=== PATIENT | female | born 1965 | race Caucasian/White ===

== ENCOUNTER 2017-03-06 13:54 | Emergency (ER) | payer SELFPAY ==
[~2017-03-06] VITALS: Ht 165.1 cm; Wt 65.8 kg
[~2017-03-06 13:54] MED LIST: ALBU90I INH; ALPR.5 PO; AZIT250 PO; CITA20 PO; CYCL10 PO; DIPATR PO; FAMO20 PO; Flomax0.4 MG PO; GABA100 PO; HYDACE10B PO; HYDACE5; HYDACE5325 PO; IBUP600; IBUP600 PO; LOPE2C PO; Norco 10-325 T1 EACH PO; OMEP20ER PO; OXYC5 PO; PANT20 PO; PANT40 PO; PRED20 PO; PREG25 PO; PROACE100; PROM25 PO; RXHYD5325 PO; TEMA30 PO; TRAZ50 PO; VITAMIN D50000 UNIT PO
[2017-03-06 14:39] LABS: BASOPHILS ABSOLUTE AUTO 0.02 K/mm3 (0.00-0.23); BASOPHILS PERCENT AUTO 0 % (0-2); EOSINOPHILS ABSOLUTE AUTO 0.05 K/mm3 (0.00-0.68); EOSINOPHILS PERCENT AUTO 1 % (0-6); Hematocrit 42.6 % (33.0-51.0); Hemoglobin 14.6 g/dL (11.5-16.0); IMMATURE GRAN ABSOLUTE AUTO 0.02 K/mm3 (0.00-0.10); IMMATURE GRAN PERCENT AUTO 0 % (0-1); LYMPHOCYTES ABSOLUTE AUTO 1.99 K/mm3 (0.84-5.20); LYMPHOCYTES PERCENT AUTO 28 % (21-46); MONOCYTES ABSOLUTE AUTO 0.66 K/mm3 (0.16-1.47); MONOCYTES PERCENT AUTO 9 % (4-13); Mean Corpuscular HGB Conc 34.3 g/dL (31.5-36.5); Mean Corpuscular Volume 96 fL (80-100); Mean Platelet Volume 10.6 fL (9.1-12.4); NEUTROPHILS ABSOLUTE AUTO 4.45 K/mm3 (1.96-9.15); NEUTROPHILS PERCENT AUTO 62 % (41-73); Platelet Count 206 K/mm3 (150-400); RDW Standard Deviation 49.3 fL (35.1-46.3); Red Blood Cell Count 4.43 M/mm3 (3.80-5.20); White Blood Cell Count 7.19 K/mm3 (4.00-11.30)
[2017-03-06 15:02] LABS: Troponin I <0.015 ng/mL (0.000-0.040)
[2017-03-06 15:06] LABS: Alanine Aminotransfer (ALT/SGP 50 U/L (12-78); Albumin, Blood 4.1 g/dL (3.4-5.0); Albumin/Globulin Ratio 1.1 (0.8-1.8); Alk Phos 84 U/L (50-136); Anion Gap 9 mmol/L (6-16); Aspartate Aminotrans (AST/SGOT 45 U/L (12-37); Bilirubin, Total 0.3 mg/dL (0.1-1.0); Blood Urea Nitrogen 15 mg/dL (8-24); Bun/Creatinine Ratio 27.6 (12.0-20.0); CO2, Blood 23 mmol/L (21-32); Calcium, Blood 9.2 mg/dL (8.5-10.1); Chloride, Blood 107 mmol/L (98-108); Creatinine, Blood 0.54 mg/dL (0.40-1.00); Globulin, Blood 3.8 g/dL (2.2-4.0); Glomerular Filtration Rate >60 (60-); Glucose, Blood 112 mg/dL (70-99); Potassium, Blood 3.9 mmol/L (3.5-5.5); Sodium, Blood 139 mmol/L (136-145); Total Protein, Blood 7.9 g/dL (6.4-8.2)
[2017-03-06 17:18] LABS: Magnesium, Blood 1.7 mg/dL (1.6-2.4)
[2017-03-06 17:38] LABS: Source, Urine Clean Catch
[2017-03-06 18:02] LABS: Appearance, Urine Clear (Clear); Bilirubin, Urine Neg (Neg); Blood, Urine Neg (Neg); Color, Urine Yellow (P-Yellow); Glucose Qualitative, Urine Neg (Neg); Ketones, Urine Neg (Neg); Leukocyte Esterase, Urine Neg (Neg); Nitrite, Urine Neg (Neg); Protein, Urine 2+ (Neg); Urobilinogen, Urine NORM (Normal)
[2017-03-06 18:29] LABS: Bacteria Rare /hpf; Red Blood Cells, Urine 0-2 /hpf (0-2); White Blood Cells, Urine 0-2 /hpf (0-5)
[2017-03-06 18:30] LABS: Squamous Epithelial Cells Few /hpf (Few)
[2017-03-06] MEDS ORDERED: Toprol Xl25 MG PO (19:20)
== END 2017-03-06 19:15 | disposition home or self-care (01) ==
LOC: ER 13:54
PROVIDERS: Emergency Medicine
DX: R00.2 Palpitations (principal); R07.89 Other chest pain; F17.200 Nicotine dependence, unspecified, uncomplicated; Z85.3 Personal history of malignant neoplasm of breast; Z90.712 Acquired absence of cervix with remaining uterus
CPT/HCPCS: 36415; 71046; 71260; 80053; 81001; 83735; 83880; 84443; 84484; 85025; 93005; 93010; 96374; 96375; 99284; J2060; J2405; J7030; Q9967

== ENCOUNTER 2018-07-01 09:05 | Emergency (ER) | payer SELFPAY ==
[~2018-07-01] VITALS: Ht 165.1 cm; Wt 65.3 kg
[~2018-07-01 09:05] MED LIST changes: +Toprol Xl25 MG PO
[2018-07-01] MEDS ORDERED: VITAMIN D5000 UNIT PO (09:25)
[2018-07-01] MEDS ORDERED: PROBIOTIC250 MG PO (09:25)
[2018-07-01 09:54] LABS: BASOPHILS ABSOLUTE AUTO 0.04 K/mm3 (0.00-0.23); BASOPHILS PERCENT AUTO 1 % (0-2); EOSINOPHILS ABSOLUTE AUTO 0.01 K/mm3 (0.00-0.68); EOSINOPHILS PERCENT AUTO 0 % (0-6); Hematocrit 44.2 % (33.0-51.0); Hemoglobin 14.9 g/dL (11.5-16.0); IMMATURE GRAN ABSOLUTE AUTO 0.03 K/mm3 (0.00-0.10); IMMATURE GRAN PERCENT AUTO 0 % (0-1); LYMPHOCYTES ABSOLUTE AUTO 0.86 K/mm3 (0.84-5.20); LYMPHOCYTES PERCENT AUTO 10 % (21-46); MONOCYTES ABSOLUTE AUTO 0.59 K/mm3 (0.16-1.47); MONOCYTES PERCENT AUTO 7 % (4-13); Mean Corpuscular HGB 34.9 pg (26.0-34.0); Mean Corpuscular HGB Conc 33.7 g/dL (31.5-36.5); Mean Corpuscular Volume 104 fL (80-100); Mean Platelet Volume 10.6 fL (9.1-12.4); NEUTROPHILS ABSOLUTE AUTO 7.33 K/mm3 (1.96-9.15); NEUTROPHILS PERCENT AUTO 83 % (41-73); Platelet Count 210 K/mm3 (150-400); RDW Coefficient Variation 14.2 % (11.7-14.2); RDW Standard Deviation 54.2 fL (35.1-46.3); Red Blood Cell Count 4.27 M/mm3 (3.80-5.20); White Blood Cell Count 8.86 K/mm3 (4.00-11.30)
[2018-07-01 10:35] LABS: Alanine Aminotransfer (ALT/SGP 115 U/L (12-78); Albumin, Blood 4.2 g/dL (3.4-5.0); Albumin/Globulin Ratio 1.1 (0.8-1.8); Alk Phos 117 U/L (50-136); Anion Gap 9 mmol/L (6-16); Aspartate Aminotrans (AST/SGOT 200 U/L (12-37); Bilirubin, Total 0.6 mg/dL (0.1-1.0); Blood Urea Nitrogen 8 mg/dL (8-24); Bun/Creatinine Ratio 16.2 (12.0-20.0); CO2, Blood 22 mmol/L (21-32); Calcium, Blood 8.9 mg/dL (8.5-10.1); Chloride, Blood 107 mmol/L (98-108); Creatinine, Blood 0.49 mg/dL (0.40-1.00); Globulin, Blood 3.7 g/dL (2.2-4.0); Glomerular Filtration Rate >60 (60-); Glucose, Blood 108 mg/dL (70-99); Potassium, Blood 4.7 mmol/L (3.5-5.5); Sodium, Blood 138 mmol/L (136-145); Total Protein, Blood 7.9 g/dL (6.4-8.2); Troponin I <0.015 ng/mL (0.000-0.040)
[2018-07-01] MEDS ORDERED: Vistaril25 MG PO (12:28)
== END 2018-07-01 12:56 | disposition home or self-care (01) ==
LOC: ER 09:05
PROVIDERS: Emergency Medicine
DX: R00.2 Palpitations (principal); R00.0 Tachycardia, unspecified; F41.9 Anxiety disorder, unspecified; F32.9 Major depressive disorder, single episode, unspecified; F17.210 Nicotine dependence, cigarettes, uncomplicated; Z85.3 Personal history of malignant neoplasm of breast
CPT/HCPCS: 36415; 71260; 80053; 84484; 85025; 93005; 93010; 96374-59; 99284-25; J2405; Q9967

== ENCOUNTER 2020-02-13 09:34 | Inpatient (IN) | payer SELFPAY ==
[~2020-02-13] VITALS: Ht 165.1 cm; Wt 67.2 kg
[~2020-02-13 09:34] MED LIST changes: +PROBIOTIC250 MG PO; +VITAMIN D5000 UNIT PO; +Vistaril25 MG PO
[2020-02-13] MEDS ORDERED: MOTRIN IB200 MG PO (09:48)
[2020-02-13] MEDS ORDERED: OMEP20ER PO (09:48)
[2020-02-13 10:00] LABS: BASOPHILS ABSOLUTE AUTO 0.04 K/mm3 (0.00-0.23); BASOPHILS PERCENT AUTO 0 % (0-2); EOSINOPHILS PERCENT AUTO 0 % (0-6); Hematocrit 43.1 % (33.0-51.0); Hemoglobin 14.8 g/dL (11.5-16.0); IMMATURE GRAN ABSOLUTE AUTO 0.05 K/mm3 (0.00-0.10); IMMATURE GRAN PERCENT AUTO 0 % (0-1); LYMPHOCYTES ABSOLUTE AUTO 1.39 K/mm3 (0.84-5.20); LYMPHOCYTES PERCENT AUTO 8 % (21-46); MONOCYTES ABSOLUTE AUTO 0.97 K/mm3 (0.16-1.47); MONOCYTES PERCENT AUTO 6 % (4-13); Mean Corpuscular HGB 31.2 pg (26.0-34.0); Mean Corpuscular HGB Conc 34.3 g/dL (31.5-36.5); Mean Corpuscular Volume 91 fL (80-100); Mean Platelet Volume 10.6 fL (9.1-12.4); NEUTROPHILS ABSOLUTE AUTO 14.89 K/mm3 (1.96-9.15); NEUTROPHILS PERCENT AUTO 86 % (41-73); Platelet Count 289 K/mm3 (150-400); RDW Coefficient Variation 14.8 % (11.7-14.2); RDW Standard Deviation 49.6 fL (35.1-46.3); Red Blood Cell Count 4.75 M/mm3 (3.80-5.20); White Blood Cell Count 17.34 K/mm3 (4.00-11.30)
[2020-02-13 10:27] LABS: Magnesium, Blood 1.6 mg/dL (1.6-2.4)
[2020-02-13 10:35] LABS: Alanine Aminotransfer (ALT/SGP 32 U/L (12-78); Albumin/Globulin Ratio 0.8 (0.8-1.8); Alk Phos 97 U/L (50-136); Anion Gap 12 mmol/L (6-16); Aspartate Aminotrans (AST/SGOT 54 U/L (12-37); Bilirubin, Total 0.8 mg/dL (0.1-1.0); Blood Urea Nitrogen 4 mg/dL (8-24); CO2, Blood 31 mmol/L (21-32); Chloride, Blood 103 mmol/L (98-108); Creatinine, Blood 0.45 mg/dL (0.40-1.00); Glomerular Filtration Rate >60 (60-); Glucose, Blood 120 mg/dL (70-99); Potassium, Blood 1.6 mmol/L (3.5-5.5); Sodium, Blood 146 mmol/L (136-145)
[2020-02-13 10:41] LABS: Source, Urine Clean Catch
[2020-02-13 10:54] LABS: Bilirubin, Urine Neg (Neg); Blood, Urine 2+ (Neg); Glucose Qualitative, Urine Neg (Neg); Ketones, Urine Neg (Neg); Leukocyte Esterase, Urine Neg (Neg); Nitrite, Urine Neg (Neg); Protein, Urine Neg (Neg); Urobilinogen, Urine NORM (Normal)
[2020-02-13 11:07] LABS: Appearance, Urine Clear (Clear); Color, Urine Yellow (P-Yellow)
[2020-02-13 11:09] LABS: Bacteria Not Seen /hpf; Squamous Epithelial Cells Mod /hpf (Few); White Blood Cells, Urine Not Seen /hpf (0-5)
[2020-02-13 11:14] LABS: U Amphetamine Screen Not Detected; U Barbituate Screen Not Detected; U Benzodiazapine Screen Not Detected; U Buprenorphine Screen Not Detected; U Cannabinoids Screen DETECTED; U Cocaine Screen Not Detected; U Methadone Screen Not Detected; U Methamphetamine Screen Not Detected; U Opiates Screen Not Detected; U Oxycodone Screen Not Detected; U Phencyclidine Screen Not Detected; U Propoxyphene Screen Not Detected
[2020-02-13 14:32] LABS: Anion Gap 14 mmol/L (6-16); Blood Urea Nitrogen 4 mg/dL (8-24); Bun/Creatinine Ratio 8.3 (12.0-20.0); CO2, Blood 29 mmol/L (21-32); Calcium, Blood 9.3 mg/dL (8.5-10.1); Chloride, Blood 104 mmol/L (98-108); Creatinine, Blood 0.48 mg/dL (0.40-1.00); Glomerular Filtration Rate >60 (60-); Glucose, Blood 117 mg/dL (70-99); Phosphorus, Blood 1.2 mg/dL (2.5-4.9); Potassium, Blood 1.7 mmol/L (3.5-5.5); Sodium, Blood 147 mmol/L (136-145)
[2020-02-13] MEDS ORDERED: IBUP200 PO (15:17)
[2020-02-13 22:21] LABS: Albumin, Blood 2.5 g/dL (3.4-5.0); Anion Gap 8 mmol/L (6-16); Blood Urea Nitrogen 3 mg/dL (8-24); Bun/Creatinine Ratio 6.1 (12.0-20.0); CO2, Blood 35 mmol/L (21-32); Calcium, Blood 8.3 mg/dL (8.5-10.1); Chloride, Blood 105 mmol/L (98-108); Glomerular Filtration Rate >60 (60-); Glucose, Blood 123 mg/dL (70-99); Phosphorus, Blood 4.3 mg/dL (2.5-4.9); Potassium, Blood 1.7 mmol/L (3.5-5.5); Sodium, Blood 148 mmol/L (136-145)
[2020-02-14 04:33] LABS: Anion Gap 8 mmol/L (6-16); Blood Urea Nitrogen 3 mg/dL (8-24); Bun/Creatinine Ratio 6.3 (12.0-20.0); CO2, Blood 34 mmol/L (21-32); Chloride, Blood 107 mmol/L (98-108); Creatinine, Blood 0.48 mg/dL (0.40-1.00); Glomerular Filtration Rate >60 (60-); Glucose, Blood 108 mg/dL (70-99); Potassium, Blood 1.8 mmol/L (3.5-5.5); Sodium, Blood 149 mmol/L (136-145)
[2020-02-14 18:24] LABS: Magnesium, Blood 1.8 mg/dL (1.6-2.4)
[2020-02-14 18:29] LABS: Albumin, Blood 2.6 g/dL (3.4-5.0); Anion Gap 11 mmol/L (6-16); Blood Urea Nitrogen 2 mg/dL (8-24); CO2, Blood 29 mmol/L (21-32); Calcium, Blood 8.1 mg/dL (8.5-10.1); Chloride, Blood 104 mmol/L (98-108); Creatinine, Blood 0.51 mg/dL (0.40-1.00); Glomerular Filtration Rate >60 (60-); Glucose, Blood 81 mg/dL (70-99); Phosphorus, Blood 3.2 mg/dL (2.5-4.9); Potassium, Blood 2.1 mmol/L (3.5-5.5); Sodium, Blood 144 mmol/L (136-145)
[2020-02-15 05:29] LABS: Hematocrit 36.1 % (33.0-51.0); Hemoglobin 12.2 g/dL (11.5-16.0); Mean Corpuscular HGB Conc 33.8 g/dL (31.5-36.5); Mean Corpuscular Volume 92 fL (80-100); Mean Platelet Volume 10.8 fL (9.1-12.4); Platelet Count 220 K/mm3 (150-400); RDW Coefficient Variation 15.1 % (11.7-14.2); RDW Standard Deviation 51.6 fL (35.1-46.3); Red Blood Cell Count 3.93 M/mm3 (3.80-5.20)
[2020-02-15 05:42] LABS: Albumin, Blood 2.5 g/dL (3.4-5.0); Anion Gap 4 mmol/L (6-16); Blood Urea Nitrogen 1 mg/dL (8-24); Bun/Creatinine Ratio 2.1 (12.0-20.0); CO2, Blood 34 mmol/L (21-32); Calcium, Blood 7.9 mg/dL (8.5-10.1); Chloride, Blood 109 mmol/L (98-108); Creatinine, Blood 0.49 mg/dL (0.40-1.00); Glomerular Filtration Rate >60 (60-); Glucose, Blood 92 mg/dL (70-99); Phosphorus, Blood 3.7 mg/dL (2.5-4.9); Potassium, Blood 2.7 mmol/L (3.5-5.5); Sodium, Blood 147 mmol/L (136-145)
[2020-02-16] MEDS ORDERED: POTCHL20ER PO (10:54)
== END 2020-02-16 12:55 | disposition home or self-care (01) | DRG 641 ==
LOC: ER 09:34 → PCU 12:55 → MEDS 02-16 00:18
PROVIDERS: Emergency Medicine; Internal Medicine; ADMIT Internal Medicine
DX: E87.6 Hypokalemia (principal); F10.20 Alcohol dependence, uncomplicated; K21.9 Gastro-esophageal reflux disease without esophagitis; M62.81 Muscle weakness (generalized); I49.3 Ventricular premature depolarization; Z20.828 Contact with and (suspected) exposure to other viral communicable diseases; F32.9 Major depressive disorder, single episode, unspecified; F41.9 Anxiety disorder, unspecified; Z85.3 Personal history of malignant neoplasm of breast; Z85.41 Personal history of malignant neoplasm of cervix uteri; F17.210 Nicotine dependence, cigarettes, uncomplicated
CPT/HCPCS: 36415; 70450; 80048; 80053; 80069; 81001; 82330; 82550; 82607; 82746; 83735; 84100; 84132; 84443; 85025; 85027; 87493; 93005; 93010; 96365; 96366; 96367; 96368; 96375; 97110; 97162; 97166; 97168; 97530; 97535; 99285-25; A9270; A9270-GY; C1751; C9113; G0480; J0610; J1650; J2405; J3411; J3475; J3480; J7030; J7060; P9612

== ENCOUNTER 2020-12-26 17:27 | Inpatient (IN) | payer SELFPAY ==
[~2020-12-26] VITALS: Ht 165.1 cm; Wt 62.0 kg
[~2020-12-26 17:27] MED LIST changes: +IBUP200 PO; +MOTRIN IB200 MG PO; +POTCHL20ER PO
[2020-12-26 18:00] LABS: Calcium, Ionized (POC) 0.95 mmol/L (1.10-1.46); Chloride (POC) 98 mmol/L (98-108); Creatinine (POC) 0.6 mg/dL (0.6-1.0); Glucose (ISTAT POC) 95 mg/dL (70-99); Hemoglobin (POC) 11.9 g/dL (12.0-16.0); Potassium (POC) 2.1 mmol/L (3.5-5.5); Sodium (POC) 140 mmol/L (135-148); Total CO2 (POC) 27 mmol/L (21-32)
[2020-12-26 18:00] LABS: BASOPHILS ABSOLUTE AUTO 0.03 K/mm3 (0.00-0.23); BASOPHILS PERCENT AUTO 0 % (0-2); EOSINOPHILS ABSOLUTE AUTO 0.09 K/mm3 (0.00-0.68); EOSINOPHILS PERCENT AUTO 1 % (0-6); Hematocrit 34.3 % (33.0-51.0); Hemoglobin 12.3 g/dL (11.5-16.0); IMMATURE GRAN ABSOLUTE AUTO 0.01 K/mm3 (0.00-0.10); IMMATURE GRAN PERCENT AUTO 0 % (0-1); LYMPHOCYTES ABSOLUTE AUTO 2.32 K/mm3 (0.84-5.20); LYMPHOCYTES PERCENT AUTO 33 % (21-46); MONOCYTES PERCENT AUTO 7 % (4-13); Mean Corpuscular HGB 37.5 pg (26.0-34.0); Mean Corpuscular HGB Conc 35.9 g/dL (31.5-36.5); Mean Corpuscular Volume 105 fL (80-100); Mean Platelet Volume 9.7 fL (9.1-12.4); NEUTROPHILS ABSOLUTE AUTO 4.06 K/mm3 (1.96-9.15); NEUTROPHILS PERCENT AUTO 58 % (41-73); Platelet Count 284 K/mm3 (150-400); RDW Coefficient Variation 15.2 % (11.7-14.2); RDW Standard Deviation 58.5 fL (35.1-46.3); Red Blood Cell Count 3.28 M/mm3 (3.80-5.20); White Blood Cell Count 7.01 K/mm3 (4.00-11.30)
[2020-12-26 18:53] LABS: Alanine Aminotransfer (ALT/SGP 19 U/L (12-78); Albumin, Blood 2.8 g/dL (3.4-5.0); Albumin/Globulin Ratio 0.8 (0.8-1.8); Alk Phos 141 U/L (50-136); Anion Gap 12 mmol/L (6-16); Aspartate Aminotrans (AST/SGOT 27 U/L (12-37); Bilirubin, Total 0.3 mg/dL (0.1-1.0); Blood Urea Nitrogen 4 mg/dL (8-24); Bun/Creatinine Ratio 6.6 (12.0-20.0); CO2, Blood 28 mmol/L (21-32); Calcium, Blood 8.5 mg/dL (8.5-10.1); Chloride, Blood 101 mmol/L (98-108); Creatinine, Blood 0.61 mg/dL (0.40-1.00); Globulin, Blood 3.6 g/dL (2.2-4.0); Glomerular Filtration Rate >60 (60-); Glucose, Blood 93 mg/dL (70-99); Potassium, Blood 2.2 mmol/L (3.5-5.5); Sodium, Blood 141 mmol/L (136-145); Total Protein, Blood 6.4 g/dL (6.4-8.2)
[2020-12-26] MEDS ORDERED: MOTRIN IB200 MG PO (21:00)
[2020-12-26] MEDS ORDERED: MELATONIN5 M1 PO (21:01)
--- NOTE | 2020-12-26 22:35 | NUR ---
PT NEW ADMIT, ARRIVED TO UNIT AT 2029. A/O X4. PT STATES SHE FEELS PRESSURE IN HER CHEST. PT ADMITTED WITH CRITICAL LOW POTASSIUM. 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 IV POTASSIUM CHLORIDE CURRENTLY INFUSING PER EMAR. CALL LIGHT WITHIN REACH, WILL CONTINUE TO MONITOR.
--- NOTE | 2020-12-27 06:27 | NUR ---
ELECTRONIC SYSTEMS SECURITY ASSESSMENT SUMMARY PT A/O X4, PLEASANT AND COOPERATIVE. VITALS STABLE. DENIES PAIN, SOB. PT STATES SHE FEELS LESS PRESSURE IN HER CHEST COMPARED TO WHEN SHE GOT ADMITTED. SR IN THE 80'S TO THE 90'S. VSS. CALL LIGHT WITHIN REACH, WILL CONTINUE TO MONITOR.
[2020-12-27 08:38] LABS: BASOPHILS ABSOLUTE AUTO 0.02 K/mm3 (0.00-0.23); BASOPHILS PERCENT AUTO 0 % (0-2); EOSINOPHILS ABSOLUTE AUTO 0.06 K/mm3 (0.00-0.68); EOSINOPHILS PERCENT AUTO 1 % (0-6); Hematocrit 30.3 % (33.0-51.0); Hemoglobin 10.9 g/dL (11.5-16.0); IMMATURE GRAN ABSOLUTE AUTO 0.01 K/mm3 (0.00-0.10); IMMATURE GRAN PERCENT AUTO 0 % (0-1); LYMPHOCYTES ABSOLUTE AUTO 1.31 K/mm3 (0.84-5.20); LYMPHOCYTES PERCENT AUTO 21 % (21-46); MONOCYTES ABSOLUTE AUTO 0.52 K/mm3 (0.16-1.47); MONOCYTES PERCENT AUTO 8 % (4-13); Mean Corpuscular HGB 37.8 pg (26.0-34.0); Mean Corpuscular Volume 105 fL (80-100); Mean Platelet Volume 9.6 fL (9.1-12.4); NEUTROPHILS ABSOLUTE AUTO 4.32 K/mm3 (1.96-9.15); NEUTROPHILS PERCENT AUTO 69 % (41-73); Platelet Count 215 K/mm3 (150-400); RDW Coefficient Variation 15.2 % (11.7-14.2); RDW Standard Deviation 59.2 fL (35.1-46.3); Red Blood Cell Count 2.88 M/mm3 (3.80-5.20); White Blood Cell Count 6.24 K/mm3 (4.00-11.30)
[2020-12-27 09:16] LABS: Albumin, Blood 2.4 g/dL (3.4-5.0); Anion Gap 7 mmol/L (6-16); Blood Urea Nitrogen 5 mg/dL (8-24); Bun/Creatinine Ratio 6.6 (12.0-20.0); CO2, Blood 29 mmol/L (21-32); Calcium, Blood 8.1 mg/dL (8.5-10.1); Chloride, Blood 106 mmol/L (98-108); Creatinine, Blood 0.76 mg/dL (0.40-1.00); Glomerular Filtration Rate >60 (60-); Glucose, Blood 99 mg/dL (70-99); Magnesium, Blood 1.8 mg/dL (1.6-2.4); Phosphorus, Blood 3.6 mg/dL (2.5-4.9); Potassium, Blood 2.5 mmol/L (3.5-5.5); Sodium, Blood 142 mmol/L (136-145)
[2020-12-27 15:15] LABS: Albumin, Blood 2.8 g/dL (3.4-5.0); Anion Gap 9 mmol/L (6-16); Blood Urea Nitrogen 5 mg/dL (8-24); Bun/Creatinine Ratio 7.1 (12.0-20.0); CO2, Blood 27 mmol/L (21-32); Calcium, Blood 8.7 mg/dL (8.5-10.1); Chloride, Blood 105 mmol/L (98-108); Glomerular Filtration Rate >60 (60-); Glucose, Blood 105 mg/dL (70-99); Phosphorus, Blood 3.8 mg/dL (2.5-4.9); Potassium, Blood 2.8 mmol/L (3.5-5.5); Sodium, Blood 141 mmol/L (136-145)
--- NOTE | 2020-12-27 18:43 | NUR ---
Patient is 55 year old female admitted with fatigue and lower extremities weakness. Potassim was 2.2 during evaluation at ED and was admitted for hypokalemia. She is alert and oriented x3 , able to make needs known. she was very anxious this morning and almost walked AMA but was encouraged to stay . Started Potassium replacement therapy with PO AND IV. Potassium is improving 2.8 .CIWA score was 8 ,ativan 2mg IV was given and it was effective. Hydralazine was given for elevated BP AND BP is trending down.Call light within reach.Continue to monitor.
--- NOTE | 2020-12-28 03:50 | NUR ---
DICTATING MACHINE TRANSCRIBER SUMMARY PATIENT HAD A FAIR SHIFT. SHE HAD A FAIR SHIFT. SHE IS STILL ANXIOUS WHEN AWAKE. VITALS STABLE. WILL CONTINUE TO MONITOR HER.
[2020-12-28 04:00] LABS: BASOPHILS ABSOLUTE AUTO 0.01 K/mm3 (0.00-0.23); BASOPHILS PERCENT AUTO 0 % (0-2); EOSINOPHILS PERCENT AUTO 2 % (0-6); Hematocrit 29.9 % (33.0-51.0); Hemoglobin 10.4 g/dL (11.5-16.0); IMMATURE GRAN ABSOLUTE AUTO 0.01 K/mm3 (0.00-0.10); IMMATURE GRAN PERCENT AUTO 0 % (0-1); LYMPHOCYTES ABSOLUTE AUTO 1.66 K/mm3 (0.84-5.20); LYMPHOCYTES PERCENT AUTO 31 % (21-46); MONOCYTES PERCENT AUTO 9 % (4-13); Mean Corpuscular HGB Conc 34.8 g/dL (31.5-36.5); Mean Corpuscular Volume 109 fL (80-100); Mean Platelet Volume 9.8 fL (9.1-12.4); NEUTROPHILS ABSOLUTE AUTO 3.03 K/mm3 (1.96-9.15); NEUTROPHILS PERCENT AUTO 57 % (41-73); Platelet Count 230 K/mm3 (150-400); RDW Coefficient Variation 15.6 % (11.7-14.2); RDW Standard Deviation 62.4 fL (35.1-46.3); Red Blood Cell Count 2.74 M/mm3 (3.80-5.20); White Blood Cell Count 5.31 K/mm3 (4.00-11.30)
[2020-12-28 04:19] LABS: Albumin, Blood 2.3 g/dL (3.4-5.0); Anion Gap 5 mmol/L (6-16); Blood Urea Nitrogen 3 mg/dL (8-24); Bun/Creatinine Ratio 4.2 (12.0-20.0); CO2, Blood 25 mmol/L (21-32); Chloride, Blood 114 mmol/L (98-108); Creatinine, Blood 0.71 mg/dL (0.40-1.00); Free Thyroxine 0.78 ng/dL (0.70-1.60); Glomerular Filtration Rate >60 (60-); Glucose, Blood 93 mg/dL (70-99); Potassium, Blood 3.6 mmol/L (3.5-5.5); Sodium, Blood 144 mmol/L (136-145)
[2020-12-28] MEDS ORDERED: POTA10T PO (11:53)
--- NOTE | 2020-12-28 12:52 | NUR ---
Patient is alert and oriented x3 , able to make needs known. Admitted for hypokalemia and it has been resolved ,potassium 3.6 at the time of discharged.Vital signs are stable.Independent with ADLS. Tele monitor was normal sinus rthym at 83 at the time of discharge. Discharge instruction given and acknowledged . Patient left in a stable condition with her . Continue to monitor.
== END 2020-12-28 12:40 | disposition home or self-care (01) | DRG 641 ==
LOC: ER 17:27 → MEDS 17:28 → ER 20:10 → MEDS 20:29
PROVIDERS: Internal Medicine; Physician Assistant; Physician Assistant Medical; Student in an Organized Health Care Education/Training Program; ADMIT Internal Medicine
DX: E87.6 Hypokalemia (principal); K21.9 Gastro-esophageal reflux disease without esophagitis; I49.3 Ventricular premature depolarization; F10.20 Alcohol dependence, uncomplicated; D72.829 Elevated white blood cell count, unspecified; Z79.899 Other long term (current) drug therapy; Z98.890 Other specified postprocedural states; F32.A Depression, unspecified; F41.9 Anxiety disorder, unspecified; Z85.3 Personal history of malignant neoplasm of breast; Z85.41 Personal history of malignant neoplasm of cervix uteri; F17.210 Nicotine dependence, cigarettes, uncomplicated; E83.51 Hypocalcemia
CPT/HCPCS: 36415; 80047; 80053; 80069; 82330; 83735; 84439; 85014; 85025; 93005; 93010; 96365; 96368; 99285-25; A9270; G0378; J0360; J0610; J2060; J3411; J3475; J3480; J7030; J7042

== ENCOUNTER 2021-05-16 06:31 | Emergency (ER) | payer OTHER ==
[~2021-05-16] VITALS: Ht 165.1 cm; Wt 56.7 kg
[~2021-05-16 06:31] MED LIST changes: +AMOCLA875 PO; +COMPAZINE10 MG PO; +MELATONIN5 M1 PO; +POTA10T PO; +Roxicodone5 MG PO
[2021-05-16 07:17] LABS: BASOPHILS ABSOLUTE AUTO 0.02 K/mm3 (0.00-0.23); BASOPHILS PERCENT AUTO 0 % (0-2); EOSINOPHILS ABSOLUTE AUTO 0.01 K/mm3 (0.00-0.68); EOSINOPHILS PERCENT AUTO 0 % (0-6); Hematocrit 42.9 % (33.0-51.0); Hemoglobin 15.2 g/dL (11.5-16.0); IMMATURE GRAN ABSOLUTE AUTO 0.06 K/mm3 (0.00-0.10); IMMATURE GRAN PERCENT AUTO 0 % (0-1); LYMPHOCYTES ABSOLUTE AUTO 1.66 K/mm3 (0.84-5.20); LYMPHOCYTES PERCENT AUTO 9 % (21-46); MONOCYTES ABSOLUTE AUTO 0.98 K/mm3 (0.16-1.47); MONOCYTES PERCENT AUTO 5 % (4-13); Mean Corpuscular HGB 34.7 pg (26.0-34.0); Mean Corpuscular HGB Conc 35.4 g/dL (31.5-36.5); Mean Corpuscular Volume 98 fL (80-100); Mean Platelet Volume 10.3 fL (9.1-12.4); NEUTROPHILS ABSOLUTE AUTO 16.26 K/mm3 (1.96-9.15); NEUTROPHILS PERCENT AUTO 86 % (41-73); Platelet Count 547 K/mm3 (150-400); RDW Coefficient Variation 13.1 % (11.7-14.2); Red Blood Cell Count 4.38 M/mm3 (3.80-5.20); White Blood Cell Count 18.99 K/mm3 (4.00-11.30)
[2021-05-16 07:19] LABS: Alanine Aminotransfer (ALT/SGP 22 U/L (12-78); Albumin, Blood 3.2 g/dL (3.4-5.0); Albumin/Globulin Ratio 0.8 (0.8-1.8); Alk Phos 137 U/L (50-136); Anion Gap 13 mmol/L (6-16); Aspartate Aminotrans (AST/SGOT 39 U/L (12-37); Bilirubin, Total 0.4 mg/dL (0.1-1.0); Blood Urea Nitrogen 13 mg/dL (8-24); CO2, Blood 25 mmol/L (21-32); Calcium, Blood 9.3 mg/dL (8.5-10.1); Chloride, Blood 97 mmol/L (98-108); Creatinine, Blood 0.52 mg/dL (0.40-1.00); Globulin, Blood 4.2 g/dL (2.2-4.0); Glomerular Filtration Rate >60 (60-); Glucose, Blood 164 mg/dL (70-99); Potassium, Blood 3.2 mmol/L (3.5-5.5); Sodium, Blood 135 mmol/L (136-145); Total Protein, Blood 7.4 g/dL (6.4-8.2)
[2021-05-16 10:25] LABS: Source, Urine Clean Catch
[2021-05-16 11:02] LABS: Appearance, Urine Hazy (Clear); Blood, Urine 1+ (Neg); Color, Urine Amber (P-Yellow); Glucose Qualitative, Urine Neg (Neg); Ketones, Urine 3+ (Neg); Leukocyte Esterase, Urine 1+ (Neg); Nitrite, Urine Neg (Neg); Protein, Urine 2+ (Neg); Urobilinogen, Urine 2+ (Normal)
[2021-05-16 11:48] LABS: Bilirubin, Urine 1+ (Neg)
[2021-05-16 11:49] LABS: Bacteria Mod /hpf; Red Blood Cells, Urine 0-2 /hpf (0-2); Squamous Epithelial Cells Few /hpf (Few)
[2021-05-16 11:50] LABS: Amorphous Light (0-Heavy); Mucus Heavy (0-Heavy)
== END 2021-05-16 15:21 | disposition home or self-care (01) ==
LOC: ER 06:31
PROVIDERS: Student in an Organized Health Care Education/Training Program
DX: E46 Unspecified protein-calorie malnutrition (principal); E87.6 Hypokalemia; E86.0 Dehydration; I45.81 Long QT syndrome; I10 Essential (primary) hypertension; K21.9 Gastro-esophageal reflux disease without esophagitis; F17.210 Nicotine dependence, cigarettes, uncomplicated
CPT/HCPCS: 51701; 74176; 80053; 81001; 83690; 83735; 85025; 87086; 93005; 93010; C9113; J1170; J2060; J2550; J3480; J7030; J7050

== ENCOUNTER 2021-06-25 07:22 | Day surgery (SDC) | payer OTHER ==
[~2021-06-25] VITALS: Ht 162.6 cm; Wt 54.0 kg
[~2021-06-25 07:22] MED LIST changes: +ONDA4ODT MM
[2021-06-25] MEDS ORDERED: ESCI10 PO (07:46)
--- NOTE | 2021-06-25 09:07 | NUR ---
06/25/21 0907 Aislinn Marsh History, Chart, Medications and Allergies reviewed before start of procedure. Patient confirms NPO status and agrees with scheduled surgery. 3-LEAD EKG REVIEWED WITH PHYSICIAN PRIOR TO START OF PROCEDURE. MONITOR INTACT WITH CONTINUOUS PULSE OXIMETRY AND INTERMITTENT BP. PATIENT DETERMINED TO BE ASA APPROPRIATE FOR PROPOFOL SEDATION PRIOR TO START OF PROCEDURE BY
--- NOTE | 2021-06-25 09:27 | NUR ---
PRIOR TO START OF PROCEDURE: History, Chart, Medications and Allergies reviewed before start of procedure. Patient confirms NPO status and agrees with scheduled surgery. Patient States Post-Procedure ride home has been arranged.
--- NOTE | 2021-06-25 09:54 | NUR ---
PT AWAKE AND ALERT POST PROCEDURE. GIVEN PO FLUIDS, TOLERATES WELL. DENIES DIFF SWALLOWING OR ABD PAIN. GIVEN DC INSTRUCTIONS TO PT AND FRIEND. VERBALIZES AN UNDERSTANDING, NO QUESTIONS. IV DC'D, CATH INTACT AND PRESSURE DRESSING APPLIED. TO WC C ASSIST. RESTROOM PRIOR TO DC. OTD IN NAD VIA , ESCORTED TO CAR TO SAFE RIDE HOME.
== END 2021-06-25 23:19 | disposition home or self-care (01) ==
LOC: ORSCMMR 07:22 → ORD 08:45 → ORSCMMR 08:45
PROVIDERS: Student in an Organized Health Care Education/Training Program
PROC: 0DB48ZX Excision of Esophagogastric Junction, Via Natural or Artificial Opening Endoscopic, Diagnostic (ICD-10-PCS; principal; 2021-06-25 08:45)
PROC: 0DB68ZX Excision of Stomach, Via Natural or Artificial Opening Endoscopic, Diagnostic (ICD-10-PCS; principal; 2021-06-25 08:45)
PROC: 0DB98ZX Excision of Duodenum, Via Natural or Artificial Opening Endoscopic, Diagnostic (ICD-10-PCS; principal; 2021-06-25 08:45)
DX: R10.13 Epigastric pain (principal); R11.2 Nausea with vomiting, unspecified; R63.4 Abnormal weight loss; K58.0 Irritable bowel syndrome with diarrhea; K92.1 Melena; K29.70 Gastritis, unspecified, without bleeding; F32.A Depression, unspecified; F41.9 Anxiety disorder, unspecified; Z79.899 Other long term (current) drug therapy
CPT/HCPCS: 88305; 88342; J2704; J7120

== ENCOUNTER 2021-12-15 18:25 | Inpatient (IN) | payer OTHER ==
[~2021-12-15] VITALS: Ht 160 cm; Wt 49.2 kg
[~2021-12-15 18:25] MED LIST changes: +ESCI10 PO; +GABA100; +PHENERGAN25 MG PR; +PROM25 PR; -VITAMIN D5000 UNIT PO; +Vitamin D1000 UNI1 PO
[2021-12-15 18:51] LABS: BASOPHILS ABSOLUTE AUTO 0.02 K/mm3 (0.00-0.23); BASOPHILS PERCENT AUTO 0 % (0-2); EOSINOPHILS PERCENT AUTO 1 % (0-6); Hematocrit 38.5 % (33.0-51.0); Hemoglobin 12.7 g/dL (11.5-16.0); IMMATURE GRAN ABSOLUTE AUTO 0.03 K/mm3 (0.00-0.10); IMMATURE GRAN PERCENT AUTO 0 % (0-1); LYMPHOCYTES ABSOLUTE AUTO 2.39 K/mm3 (0.84-5.20); LYMPHOCYTES PERCENT AUTO 25 % (21-46); MONOCYTES ABSOLUTE AUTO 0.68 K/mm3 (0.16-1.47); MONOCYTES PERCENT AUTO 7 % (4-13); Mean Corpuscular HGB 29.2 pg (26.0-34.0); Mean Corpuscular Volume 89 fL (80-100); Mean Platelet Volume 11.3 fL (9.1-12.4); NEUTROPHILS ABSOLUTE AUTO 6.32 K/mm3 (1.96-9.15); NEUTROPHILS PERCENT AUTO 66 % (41-73); Platelet Count 213 K/mm3 (150-400); RDW Standard Deviation 48.8 fL (35.1-46.3); Red Blood Cell Count 4.35 M/mm3 (3.80-5.20); White Blood Cell Count 9.54 K/mm3 (4.00-11.30)
[2021-12-15 19:06] LABS: Albumin, Blood 3.2 g/dL (3.4-5.0); Albumin/Globulin Ratio 1.1 (0.8-1.8); Bilirubin, Total 0.2 mg/dL (0.1-1.0); Bun/Creatinine Ratio 18.5 (12.0-20.0); Calcium, Blood 8.7 mg/dL (8.5-10.1); Creatinine, Blood 0.7 mg/dL (0.40-1.00); Potassium, Blood 3.7 mmol/L (3.5-5.5); Total Protein, Blood 6.2 g/dL (6.4-8.2)
[2021-12-15 21:45] LABS: CHOL/HDL RATIO 3.5; Cholesterol 141 mg/dL (50-200); HDL Cholesterol 40 mg/dL (>39); LDL/HDL RATIO 2.1; Low Density Lipoprotein Chol 83 mg/dL (0-110); Triglycerides 92 mg/dL (30-160); Very Low Density Lipoprot Chol 18 mg/dL (6-32)
[2021-12-15] MEDS ORDERED: GABA100 PO (22:40)
[2021-12-15] MEDS ORDERED: TEMA15 PO (22:41)
[2021-12-15 23:50] LABS: Anti-Xa UFH, PHA Monitoring <0.10 IU/mL; International Normalized Ratio 1.12; Prothrombin Time Results 11.7 Sec (9.7-11.5)
[2021-12-16 02:12] LABS: BASOPHILS ABSOLUTE AUTO 0.04 K/mm3 (0.00-0.23); BASOPHILS PERCENT AUTO 0 % (0-2); EOSINOPHILS ABSOLUTE AUTO 0.12 K/mm3 (0.00-0.68); EOSINOPHILS PERCENT AUTO 1 % (0-6); Hematocrit 36.3 % (33.0-51.0); Hemoglobin 12.3 g/dL (11.5-16.0); IMMATURE GRAN ABSOLUTE AUTO 0.01 K/mm3 (0.00-0.10); IMMATURE GRAN PERCENT AUTO 0 % (0-1); LYMPHOCYTES ABSOLUTE AUTO 2.85 K/mm3 (0.84-5.20); LYMPHOCYTES PERCENT AUTO 27 % (21-46); MONOCYTES ABSOLUTE AUTO 0.65 K/mm3 (0.16-1.47); MONOCYTES PERCENT AUTO 6 % (4-13); Mean Corpuscular HGB 29.7 pg (26.0-34.0); Mean Corpuscular HGB Conc 33.9 g/dL (31.5-36.5); Mean Corpuscular Volume 88 fL (80-100); Mean Platelet Volume 11.4 fL (9.1-12.4); NEUTROPHILS PERCENT AUTO 65 % (41-73); Platelet Count 195 K/mm3 (150-400); RDW Coefficient Variation 15.2 % (11.7-14.2); RDW Standard Deviation 48.9 fL (35.1-46.3); Red Blood Cell Count 4.14 M/mm3 (3.80-5.20); White Blood Cell Count 10.47 K/mm3 (4.00-11.30)
--- NOTE | 2021-12-16 06:21 | NUR ---
SHIFT SUMMARY ASSUMED CARE OF PT FROM ER. PT IS A/OX4. HEART SOUNDS REGULAR. LUNG SOUNDS CLEAR. PT IS A 1P ASSIST TO BSC. PT HAD INTERMITANT CP "LIKE A BAND AROUND HER CHEST", FENTYAL WAS EFFECTIVE TO THE PAIN. PT SLEPT MOST OF THE NIGHT. C/O HEADACHE.
[2021-12-16 11:38] LABS: SARS-Cov-2 (COVID-19) PCR, MMC NEGATIVE (NEGATIVE)
--- NOTE | 2021-12-16 17:18 | NUR ---
SHIFT SUMMARY PT REMAINS ALERT AND ORIENTED. HR NSR. BP SOFT AFTER ANGIOGRAM, BUT IMPROVED AND STABLE AT THIS TIME. O2 SATS REMAIN ABOVE 90% ON RA. PT CONTINUES TO COMPLAIN OF CHEST PAIN THAT FEELS LIKE A BAND AROUND HER RANGING FROM 3-5/10. PT MEDICATED PER EMAR NEEDED. RIGHT RADIAL SITE RECOVERED AND FREE FROM ANY BLEEDING, BRUISING OR HEMATOMA. PT INDEPENDENT IN ROOM. WILL CONTINUE TO MONTIOR AND REPORT TO ONCOMING RN
--- NOTE | 2021-12-17 06:14 | NUR ---
PT AWAKE FREQUENTLY THIS SHIFT, UP TO AMBULATE HALLWAYS WITH STEADY GAIT, INTERMITTENT CHEST PAIN CONTINUES, CONTROLLED WITH FENTANYL IV, HAS COMPLAINED OF NAUSEA WITH VOMITING THIS AM AND STATES THAT THIS DOES HAPPEN AT HOME AND USUALLY REQUIRES SEEKING CARE AT THE EMERGENCY ROOM TO ALLEVIATE NAUSEA, STATES THAT THEY GIVE HER "A BUNCH OF STUFF" BUT THAT SHE DOESN'T REMEMBER THE NAMES OF THE MEDICATIONS, ZOFRAN IV PROVIDED VERY LITTLE RELIEF AND PHENERGAN WAS ORDERED A 1 TIME DOSE, PT IS CURRENTLY SLEEPING. VITALS REMAIN STABLE THROUGHOUT NOC, EKG DONE THIS AM PER ORDERS, PT CONTINUES IN NORMAL SINUS RHYTHM. WILL CONT TO MONITOR.
[2021-12-17 08:09] LABS: BASOPHILS ABSOLUTE AUTO 0.01 K/mm3 (0.00-0.23); BASOPHILS PERCENT AUTO 0 % (0-2); EOSINOPHILS ABSOLUTE AUTO 0.02 K/mm3 (0.00-0.68); EOSINOPHILS PERCENT AUTO 0 % (0-6); Hemoglobin 14.8 g/dL (11.5-16.0); IMMATURE GRAN ABSOLUTE AUTO 0.04 K/mm3 (0.00-0.10); IMMATURE GRAN PERCENT AUTO 0 % (0-1); LYMPHOCYTES PERCENT AUTO 7 % (21-46); MONOCYTES ABSOLUTE AUTO 0.32 K/mm3 (0.16-1.47); MONOCYTES PERCENT AUTO 3 % (4-13); Mean Corpuscular HGB 28.7 pg (26.0-34.0); Mean Corpuscular HGB Conc 32.9 g/dL (31.5-36.5); Mean Corpuscular Volume 87 fL (80-100); Mean Platelet Volume 11.7 fL (9.1-12.4); NEUTROPHILS ABSOLUTE AUTO 9.76 K/mm3 (1.96-9.15); NEUTROPHILS PERCENT AUTO 89 % (41-73); Platelet Count 222 K/mm3 (150-400); RDW Coefficient Variation 14.7 % (11.7-14.2); RDW Standard Deviation 47.7 fL (35.1-46.3); Red Blood Cell Count 5.15 M/mm3 (3.80-5.20); White Blood Cell Count 10.95 K/mm3 (4.00-11.30)
[2021-12-17 08:29] LABS: Albumin, Blood 3.8 g/dL (3.4-5.0); Bilirubin, Total 0.5 mg/dL (0.1-1.0); Bun/Creatinine Ratio 14.1 (12.0-20.0); Calcium, Blood 9.4 mg/dL (8.5-10.1); Creatinine, Blood 0.5 mg/dL (0.40-1.00); Globulin, Blood 3.9 g/dL (2.2-4.0); Magnesium, Blood 1.6 mg/dL (1.6-2.4); Phosphorus, Blood 3.6 mg/dL (2.5-4.9); Potassium, Blood 3.7 mmol/L (3.5-5.5); Total Protein, Blood 7.7 g/dL (6.4-8.2)
--- NOTE | 2021-12-17 08:30 | NUR ---
UPDATE ASSUMED CARE AT APPROXIMATELY 0700. PT AWAKE AND ALERT, ANSWERING QUESTIONS APPROPRIATELY. PT COMPLAINS OF NAUSEA AND STARTS TO VOMIT. APPROXIMATELY 300ML OF EMESIS. PT REFUSES ZOFRAN STATING IT "JUST MAKES MY STOMACH HURT". DR. BAILEY CALLED AND NEW ORDERS PLACED. BP ELEVATED. WILL CONTINUE TO MONITOR CLOSELY
--- NOTE | 2021-12-17 17:11 | NUR ---
SHIFT SUMMARY PT REMAINS ALERT AND ORIENTED. BP ELEVATED THROUGHOUT SHIFT. HR NSR. PT COMPLAINS OF STOMACH UPSET AND NAUSEA ALL SHIFT. PT VOMITTED MULTIPLE TIMES THROUGHOUT SHIFT. PT MEDICATED PER EMAR FOR NAUSEA. PT ABLE TO AMBULATE TO [facility] NEEDED TO VOID. PT UNABLE TO TOLERATE PO INTAKE THIS SHIFT. NS INFUSING PER ODERS. WILL CONTINUE TO MONITOR AND REPORT TO ONCOMING RN
[2021-12-17 23:52] LABS: Source, Urine Clean Catch
[2021-12-17 23:54] LABS: Bilirubin, Urine Neg (Neg); Blood, Urine Neg (Neg); Glucose Qualitative, Urine Neg (Neg); Ketones, Urine Neg (Neg); Leukocyte Esterase, Urine 1+ (Neg); Nitrite, Urine Pos (Neg); Protein, Urine 2+ (Neg); Urobilinogen, Urine NORM (Normal)
[2021-12-17 23:58] LABS: Appearance, Urine Cloudy (Clear); Color, Urine Yellow (P-Yellow)
[2021-12-18] LABS: Bacteria Many /hpf; Red Blood Cells, Urine Not Seen /hpf (0-2); Squamous Epithelial Cells Few /hpf (Few)
[2021-12-18 05:03] LABS: BASOPHILS ABSOLUTE AUTO 0.01 K/mm3 (0.00-0.23); BASOPHILS PERCENT AUTO 0 % (0-2); EOSINOPHILS ABSOLUTE AUTO 0.04 K/mm3 (0.00-0.68); EOSINOPHILS PERCENT AUTO 1 % (0-6); Hematocrit 41.2 % (33.0-51.0); Hemoglobin 13.7 g/dL (11.5-16.0); IMMATURE GRAN ABSOLUTE AUTO 0.01 K/mm3 (0.00-0.10); IMMATURE GRAN PERCENT AUTO 0 % (0-1); LYMPHOCYTES ABSOLUTE AUTO 2.38 K/mm3 (0.84-5.20); LYMPHOCYTES PERCENT AUTO 34 % (21-46); MONOCYTES ABSOLUTE AUTO 0.76 K/mm3 (0.16-1.47); MONOCYTES PERCENT AUTO 11 % (4-13); Mean Corpuscular HGB 28.6 pg (26.0-34.0); Mean Corpuscular HGB Conc 33.3 g/dL (31.5-36.5); Mean Corpuscular Volume 86 fL (80-100); Mean Platelet Volume 11.5 fL (9.1-12.4); NEUTROPHILS ABSOLUTE AUTO 3.91 K/mm3 (1.96-9.15); NEUTROPHILS PERCENT AUTO 55 % (41-73); Platelet Count 203 K/mm3 (150-400); RDW Coefficient Variation 14.8 % (11.7-14.2); RDW Standard Deviation 46.7 fL (35.1-46.3); Red Blood Cell Count 4.79 M/mm3 (3.80-5.20); White Blood Cell Count 7.11 K/mm3 (4.00-11.30)
[2021-12-18 05:31] LABS: Bun/Creatinine Ratio 21.3 (12.0-20.0); Calcium, Blood 9.1 mg/dL (8.5-10.1); Creatinine, Blood 0.56 mg/dL (0.40-1.00); Potassium, Blood 3.2 mmol/L (3.5-5.5)
--- NOTE | 2021-12-18 07:42 | NUR ---
SHIFT SUMMARY PT AOX4 T/O SHIFT. BREATHING EVEN AND UNLABORED T/O NIGHT. SATS >95% ON RA. BP SOFT WHILE SLEEPING AND LAYING IN BED. MAP >65. HR 60'S-80'S SR. DENIED CP/PRESSURE T/O SHIFT. UA OBTAINED D/T FOUL SMELLING URINE AND URINARY FREQUENCY. PT DENIES DYSURIA. URINE DARK YELLOW AND CLOUDY. URINALYSIS REPORTED TO RESIDENT AND ROCEPHIN ORDER OBTAINED. MEDICATED WITH ANTIBIOTIC PER ORDER. NO EPISODES OF VOMITING T/O SHIFT. SOME NAUSEA THIS AM, MEDICATED WITH ZOFRAN.
--- NOTE | 2021-12-18 16:29 | NUR ---
Multiple visits with pt today. We worked together on filling out an Advance Directive, upon pt's request. I made a spiritual care visit providing therapeutic listening and gentle classification counselor as pt and her spouse, Pablo, share about their fears and struggles. I returned again with Margaux Gayle, our in house Anshul, who notarized the ACP instrument. I then made copies for the pt, put one copy in pt's chart and brought one copy to Medical Records. I will continue to remain available to pt and family.
--- NOTE | 2021-12-18 19:00 | NUR ---
ASSUMED CARE PT ALERT AND TALKING W/ STAFF. SITTING IN CHAIR, STATES SHE JUST CAME BACK FROM A WALK. ON RA WITH TELE ON. DENIES ANY NEEDS AT THIS TIME.
--- NOTE | 2021-12-19 04:40 | NUR ---
TRANSFER TO 334 PT TRANSFERED VIA WC TO 334 WITH THIS RN. VSS.
[2021-12-19 04:46] LABS: BASOPHILS ABSOLUTE AUTO 0.03 K/mm3 (0.00-0.23); BASOPHILS PERCENT AUTO 1 % (0-2); EOSINOPHILS ABSOLUTE AUTO 0.14 K/mm3 (0.00-0.68); EOSINOPHILS PERCENT AUTO 2 % (0-6); Hematocrit 41.2 % (33.0-51.0); Hemoglobin 13.7 g/dL (11.5-16.0); IMMATURE GRAN ABSOLUTE AUTO 0.02 K/mm3 (0.00-0.10); IMMATURE GRAN PERCENT AUTO 0 % (0-1); LYMPHOCYTES ABSOLUTE AUTO 2.11 K/mm3 (0.84-5.20); LYMPHOCYTES PERCENT AUTO 32 % (21-46); MONOCYTES ABSOLUTE AUTO 0.66 K/mm3 (0.16-1.47); MONOCYTES PERCENT AUTO 10 % (4-13); Mean Corpuscular HGB Conc 33.3 g/dL (31.5-36.5); Mean Corpuscular Volume 87 fL (80-100); Mean Platelet Volume 11.4 fL (9.1-12.4); NEUTROPHILS ABSOLUTE AUTO 3.65 K/mm3 (1.96-9.15); NEUTROPHILS PERCENT AUTO 55 % (41-73); Platelet Count 200 K/mm3 (150-400); RDW Standard Deviation 48.2 fL (35.1-46.3); Red Blood Cell Count 4.72 M/mm3 (3.80-5.20); White Blood Cell Count 6.61 K/mm3 (4.00-11.30)
[2021-12-19 05:05] LABS: Bun/Creatinine Ratio 15.2 (12.0-20.0); Calcium, Blood 9.3 mg/dL (8.5-10.1); Creatinine, Blood 0.59 mg/dL (0.40-1.00); Potassium, Blood 3.8 mmol/L (3.5-5.5)
--- NOTE | 2021-12-19 05:06 | NUR ---
TX NOTE TRANSFER FROM PCU TO [facility] AT 0440. I AGREE WITH PREVIOUS DIRECTOR OF PROGRAMMING OF PT. PT INDEPENDENT IN ROOM. POSSIBLE PLAN IS TO START PT ON ORAL ANTIBIOTICS AND DISCHARGE LATER TODAY. PT HAS CALL LIGHT WITHIN HER REACH AND HAS NO COMPLAINTS AT THIS TIME.
[2021-12-19] MEDS ORDERED: ASPI81CH PO (11:41)
[2021-12-19] MEDS ORDERED: ATOR80 PO (11:41)
[2021-12-19] MEDS ORDERED: CLOP75 PO (11:41)
[2021-12-19] MEDS ORDERED: PANT40 PO (11:42)
[2021-12-19] MEDS ORDERED: NITR.4SL SL (11:45)
[2021-12-19] MEDS ORDERED: METO25ER PO (11:45)
[2021-12-19] MEDS ORDERED: PROM25 PO (11:46)
[2021-12-19] MEDS ORDERED: CEPH500 PO (11:49)
--- NOTE | 2021-12-19 12:24 | NUR ---
DISCHARGE SUMMARY: PT A&O X4, PLEASANT AND COOPERATIVE. PT EDUCATED ON DISCHARGE MEDICATIONS AND FOLLOWING UP WITH PCP. PT DISCONNECTED FROM TELE. PT HAD NO IV ACCESS. PT PERSONAL BELONGINGS PACKED BY AND HERSELF. PT ESCORTED VIA BY MICROBIOLOGY LAB ASSISTANT AND . PT ESCORTED TO [facility] INTO A TAXI.
== END 2021-12-19 12:35 | disposition home or self-care (01) | DRG 281 ==
LOC: ER 18:25 → PCU 18:26 → MEDS 12-16 15:55 → PCU 12-16 15:55 → MEDS 12-19 04:41
PROVIDERS: Emergency Medicine; Internal Medicine; Internal Medicine Cardiovascular Disease; Student in an Organized Health Care Education/Training Program; ADMIT Internal Medicine
PROC: 4A023N7 Measurement of Cardiac Sampling and Pressure, Left Heart, Percutaneous Approach (ICD-10-PCS; principal; 2021-12-16)
PROC: B2111ZZ Fluoroscopy of Multiple Coronary Arteries using Low Osmolar Contrast (ICD-10-PCS; 2021-12-16)
DX: I21.4 Non-ST elevation (NSTEMI) myocardial infarction (principal); K86.1 Other chronic pancreatitis; N39.0 Urinary tract infection, site not specified; F17.210 Nicotine dependence, cigarettes, uncomplicated; I95.9 Hypotension, unspecified; F41.9 Anxiety disorder, unspecified; M79.2 Neuralgia and neuritis, unspecified; I34.0 Nonrheumatic mitral (valve) insufficiency; E87.6 Hypokalemia; K21.9 Gastro-esophageal reflux disease without esophagitis; K58.9 Irritable bowel syndrome, unspecified; F32.A Depression, unspecified; Z85.3 Personal history of malignant neoplasm of breast; Z90.711 Acquired absence of uterus with remaining cervical stump; Z98.890 Other specified postprocedural states; Z79.899 Other long term (current) drug therapy
CPT/HCPCS: 36415; 71045; 76937; 80048; 80053; 80061; 81001; 83690; 83735; 84100; 84484; 85025; 85520; 85610; 85730; 86850; 86900; 86901; 87077; 87086; 87186; 93005; 93010; 93306; 93454; 96361; 96374; 96375; 96376; 99152; 99285-25; A9270; C1769; C1887; C1894; C9113; G0378; J0696; J1644; J1650; J2250; J2270; J2405; J2550; J3010; J7030; J7040; J7050; Q9967; U0004

== ENCOUNTER → 2022-03-28 | Outpatient (CLI) | payer OTHER ==
[~2022-03-28] MED LIST changes: +ASPI81CH PO; +ATOR80 PO; +CEPH500 PO; +CLOP75 PO; +METO25ER PO; +NITR.4SL SL; +TEMA15 PO
[2022-04-02 12:11] LABS: ATYPICAL PANCA <1:20 titer (Neg:<1:20); CYTOPLASMIC (C-ANCA) <1:20 titer (Neg:<1:20); PERINUCLEAR (P-ANCA) <1:20 titer (Neg:<1:20)
== END | disposition home or self-care (01) ==
LOC: LAB 17:44 → LAB SHORT 17:44
PROVIDERS: Family Medicine
DX: G62.9 Polyneuropathy, unspecified (principal)
CPT/HCPCS: 84155; 85651

== ENCOUNTER 2022-04-27 14:47 | Emergency (ER) | payer OTHER ==
[~2022-04-27] VITALS: Ht 165.1 cm; Wt 52.2 kg
[2022-04-27 15:15] LABS: BASOPHILS ABSOLUTE AUTO 0.04 K/mm3 (0.00-0.23); BASOPHILS PERCENT AUTO 0 % (0-2); EOSINOPHILS ABSOLUTE AUTO 0.18 K/mm3 (0.00-0.68); EOSINOPHILS PERCENT AUTO 2 % (0-6); Hematocrit 38.8 % (33.0-51.0); Hemoglobin 12.9 g/dL (11.5-16.0); IMMATURE GRAN ABSOLUTE AUTO 0.03 K/mm3 (0.00-0.10); IMMATURE GRAN PERCENT AUTO 0 % (0-1); LYMPHOCYTES ABSOLUTE AUTO 2.31 K/mm3 (0.84-5.20); LYMPHOCYTES PERCENT AUTO 22 % (21-46); MONOCYTES ABSOLUTE AUTO 0.47 K/mm3 (0.16-1.47); MONOCYTES PERCENT AUTO 4 % (4-13); Mean Corpuscular HGB 30.4 pg (26.0-34.0); Mean Corpuscular HGB Conc 33.2 g/dL (31.5-36.5); Mean Corpuscular Volume 92 fL (80-100); Mean Platelet Volume 10.5 fL (9.1-12.4); NEUTROPHILS ABSOLUTE AUTO 7.57 K/mm3 (1.96-9.15); NEUTROPHILS PERCENT AUTO 71 % (41-73); Platelet Count 219 K/mm3 (150-400); RDW Coefficient Variation 13.9 % (11.7-14.2); RDW Standard Deviation 46.5 fL (35.1-46.3); Red Blood Cell Count 4.24 M/mm3 (3.80-5.20)
[2022-04-27 15:29] LABS: Albumin, Blood 3.4 g/dL (3.4-5.0); Albumin/Globulin Ratio 1.1 (0.8-1.8); Bilirubin, Total 0.3 mg/dL (0.1-1.0); Bun/Creatinine Ratio 14.6 (12.0-20.0); Creatinine, Blood 0.69 mg/dL (0.40-1.00); Globulin, Blood 3.2 g/dL (2.2-4.0); Potassium, Blood 4.1 mmol/L (3.5-5.5); Total Protein, Blood 6.6 g/dL (6.4-8.2)
== END 2022-04-27 18:02 | disposition home or self-care (01) ==
LOC: ER 14:47
PROVIDERS: Emergency Medicine
DX: R07.9 Chest pain, unspecified (principal); F17.210 Nicotine dependence, cigarettes, uncomplicated
CPT/HCPCS: 36415; 71046; 80053; 83690; 84484; 85025; 93005; 93010; 96374; 96375; 99285-25; J1170; J2405

== ENCOUNTER 2022-09-22 11:08 | Day surgery (SDC) | payer OTHER ==
[~2022-09-22] VITALS: Ht 162.6 cm; Wt 56.6 kg
[2022-09-22 12:52] VITALS: BP 105/76
--- NOTE | 2022-09-22 12:55 | NUR ---
09/22/22 1255 Tru Mack IV REMOVED INTACT PRIOR TO DISCHARGE. TOLERATED WELL.
== END 2022-09-22 12:45 | disposition home or self-care (01) ==
LOC: ORSCSDS 11:08
PROVIDERS: Specialist
PROC: 0DBE8ZX Excision of Large Intestine, Via Natural or Artificial Opening Endoscopic, Diagnostic (ICD-10-PCS; principal; 2022-09-22 13:00)
DX: R63.4 Abnormal weight loss (principal); R11.0 Nausea; K64.8 Other hemorrhoids; K58.0 Irritable bowel syndrome with diarrhea; K57.30 Diverticulosis of large intestine without perforation or abscess without bleeding; F32.A Depression, unspecified; F41.9 Anxiety disorder, unspecified; Z79.82 Long term (current) use of aspirin; Z79.899 Other long term (current) drug therapy
CPT/HCPCS: 88305; J2704; J7120

== ENCOUNTER 2022-10-13 12:52 | Emergency (ER) | payer OTHER ==
[~2022-10-13] VITALS: Ht 154.9 cm; Wt 56.7 kg
[2022-10-13 13:03] VITALS: BP 126/75
[2022-10-13 13:35] LABS: BASOPHILS ABSOLUTE AUTO 0.03 K/mm3 (0.00-0.23); BASOPHILS PERCENT AUTO 0 % (0-2); EOSINOPHILS ABSOLUTE AUTO 0.13 K/mm3 (0.00-0.68); EOSINOPHILS PERCENT AUTO 1 % (0-6); Hematocrit 38.4 % (33.0-51.0); Hemoglobin 12.7 g/dL (11.5-16.0); IMMATURE GRAN ABSOLUTE AUTO 0.03 K/mm3 (0.00-0.10); IMMATURE GRAN PERCENT AUTO 0 % (0-1); LYMPHOCYTES ABSOLUTE AUTO 2.37 K/mm3 (0.84-5.20); LYMPHOCYTES PERCENT AUTO 26 % (21-46); MONOCYTES ABSOLUTE AUTO 0.59 K/mm3 (0.16-1.47); MONOCYTES PERCENT AUTO 6 % (4-13); Mean Corpuscular HGB Conc 33.1 g/dL (31.5-36.5); Mean Corpuscular Volume 91 fL (80-100); NEUTROPHILS ABSOLUTE AUTO 6.11 K/mm3 (1.96-9.15); NEUTROPHILS PERCENT AUTO 66 % (41-73); Platelet Count 215 K/mm3 (150-400); RDW Coefficient Variation 14.5 % (11.7-14.2); RDW Standard Deviation 48.1 fL (35.1-46.3); Red Blood Cell Count 4.23 M/mm3 (3.80-5.20); White Blood Cell Count 9.26 K/mm3 (4.00-11.30)
[2022-10-13 13:52] LABS: Albumin, Blood 3.7 g/dL (3.4-5.0); Albumin/Globulin Ratio 1.2 (0.8-1.8); Bilirubin, Total 0.3 mg/dL (0.1-1.0); Bun/Creatinine Ratio 10.2 (12.0-20.0); Creatinine, Blood 0.69 mg/dL (0.40-1.00); Globulin, Blood 3.2 g/dL (2.2-4.0); Potassium, Blood 4.1 mmol/L (3.5-5.5); Total Protein, Blood 6.9 g/dL (6.4-8.2)
[2022-10-13 16:37] LABS: Source, Urine Clean Catch
[2022-10-13 16:42] LABS: Appearance, Urine Clear (Clear); Bilirubin, Urine Neg (Neg); Blood, Urine Neg (Neg); Color, Urine Yellow (P-Yellow); Glucose Qualitative, Urine Neg (Neg); Ketones, Urine Neg (Neg); Leukocyte Esterase, Urine Neg (Neg); Nitrite, Urine Neg (Neg); Protein, Urine Neg (Neg); Urobilinogen, Urine NORM (Normal); pH, Urine 6.5 (5.0-8.0)
== END 2022-10-13 18:57 | disposition home or self-care (01) ==
LOC: ER 12:52
PROVIDERS: Emergency Medicine; Student in an Organized Health Care Education/Training Program
DX: R07.9 Chest pain, unspecified (principal); R10.9 Unspecified abdominal pain; Z88.8 Allergy status to other drugs, medicaments and biological substances; Z79.899 Other long term (current) drug therapy; Z79.82 Long term (current) use of aspirin; Z85.3 Personal history of malignant neoplasm of breast; F17.210 Nicotine dependence, cigarettes, uncomplicated
CPT/HCPCS: 74176; 80053; 81003; 83690; 83880; 84484; 85025; 93005; 93010; 96374; 99285-25; A9270; J1885

== ENCOUNTER 2023-01-18 16:13 | Emergency (ER) | payer OTHER ==
[~2023-01-18] VITALS: Ht 162.6 cm; Wt 59.0 kg
[2023-01-18] MEDS ORDERED: Hydroxychloroq200 MG PO (16:49)
[2023-01-18] MEDS ORDERED: ONDA4ODT (16:49)
[2023-01-18] MEDS ORDERED: BUPROPION XL150 M1 PO (16:49)
[2023-01-18 17:10] LABS: BASOPHILS ABSOLUTE AUTO 0.03 K/mm3 (0.00-0.23); BASOPHILS PERCENT AUTO 0 % (0-2); EOSINOPHILS ABSOLUTE AUTO 0.16 K/mm3 (0.00-0.68); EOSINOPHILS PERCENT AUTO 2 % (0-6); Hemoglobin 13.6 g/dL (11.5-16.0); IMMATURE GRAN ABSOLUTE AUTO 0.01 K/mm3 (0.00-0.10); IMMATURE GRAN PERCENT AUTO 0 % (0-1); LYMPHOCYTES ABSOLUTE AUTO 3.45 K/mm3 (0.84-5.20); LYMPHOCYTES PERCENT AUTO 36 % (21-46); MONOCYTES ABSOLUTE AUTO 0.81 K/mm3 (0.16-1.47); MONOCYTES PERCENT AUTO 8 % (4-13); Mean Corpuscular HGB 30.6 pg (26.0-34.0); Mean Corpuscular HGB Conc 33.2 g/dL (31.5-36.5); Mean Corpuscular Volume 92 fL (80-100); Mean Platelet Volume 11.2 fL (9.1-12.4); NEUTROPHILS ABSOLUTE AUTO 5.19 K/mm3 (1.96-9.15); NEUTROPHILS PERCENT AUTO 54 % (41-73); Platelet Count 227 K/mm3 (150-400); RDW Coefficient Variation 13.2 % (11.7-14.2); RDW Standard Deviation 44.8 fL (35.1-46.3); Red Blood Cell Count 4.45 M/mm3 (3.80-5.20); White Blood Cell Count 9.65 K/mm3 (4.00-11.30)
[2023-01-18 17:39] LABS: Alanine Aminotransfer (ALT/SGP 16 U/L (12-78); Albumin, Blood 3.4 g/dL (3.4-5.0); Alk Phos 82 U/L (50-136); Anion Gap 8 mmol/L (6-16); Aspartate Aminotrans (AST/SGOT 18 U/L (12-37); Bilirubin, Total 0.2 mg/dL (0.1-1.0); Blood Urea Nitrogen 8 mg/dL (8-24); Bun/Creatinine Ratio 9.4 (12.0-20.0); CO2, Blood 26 mmol/L (21-32); Calcium, Blood 8.7 mg/dL (8.5-10.1); Chloride, Blood 107 mmol/L (98-108); Creatinine, Blood 0.85 mg/dL (0.40-1.00); Ethanol (Alcohol), Blood, Med <3 mg/dL; Globulin, Blood 3.4 g/dL (2.2-4.0); Glomerular Filtration Rate 79 (60-); Glucose, Blood 105 mg/dL (70-99); Magnesium, Blood 1.7 mg/dL (1.6-2.4); Potassium, Blood 3.4 mmol/L (3.5-5.5); Sodium, Blood 141 mmol/L (136-145); Total Protein, Blood 6.8 g/dL (6.4-8.2)
[2023-01-18 19:00] VITALS: BP 106/71
== END 2023-01-18 19:18 | disposition home or self-care (01) ==
LOC: ER 16:13
PROVIDERS: Emergency Medicine
DX: I47.10 Supraventricular tachycardia, unspecified (principal); I25.10 Atherosclerotic heart disease of native coronary artery without angina pectoris; F17.210 Nicotine dependence, cigarettes, uncomplicated; Z79.01 Long term (current) use of anticoagulants; Z79.02 Long term (current) use of antithrombotics/antiplatelets; Z79.82 Long term (current) use of aspirin; Z79.899 Other long term (current) drug therapy; Z88.8 Allergy status to other drugs, medicaments and biological substances
CPT/HCPCS: 80053; 83735; 83880; 84484; 85025; 93005; 93010; 96360; 99285-25; A9270; J0153; J7120

== ENCOUNTER → 2023-02-26 | Outpatient (CLI) | payer OTHER ==
[~2023-02-26] MED LIST changes: +BUPROPION XL150 M1 PO; +Hydroxychloroq200 MG PO; +ONDA4ODT
== END ==
LOC: LAB 12:13 → LAB SHORT 12:13
PROVIDERS: Family Medicine
DX: G62.9 Polyneuropathy, unspecified (principal)
CPT/HCPCS: 82550

== ENCOUNTER 2024-09-14 17:08 | Emergency (ER) | payer OTHER ==
[~2024-09-14] VITALS: Ht 160 cm; Wt 59.0 kg
[2024-09-14 17:45] LABS: BASOPHILS ABSOLUTE AUTO 0.02 K/mm3 (0.00-0.23); BASOPHILS PERCENT AUTO 0 % (0-2); EOSINOPHILS ABSOLUTE AUTO 0.06 K/mm3 (0.00-0.68); EOSINOPHILS PERCENT AUTO 1 % (0-6); Hematocrit 39.1 % (33.0-51.0); Hemoglobin 12.9 g/dL (11.5-16.0); IMMATURE GRAN ABSOLUTE AUTO 0.00 K/mm3 (0.00-0.10); IMMATURE GRAN PERCENT AUTO 0 % (0-1); LYMPHOCYTES ABSOLUTE AUTO 1.96 K/mm3 (0.84-5.20); LYMPHOCYTES PERCENT AUTO 32 % (21-46); MONOCYTES ABSOLUTE AUTO 0.40 K/mm3 (0.16-1.47); MONOCYTES PERCENT AUTO 7 % (4-13); Mean Corpuscular HGB Conc 33.0 g/dL (31.5-36.5); Mean Corpuscular Volume 92 fL (80-100); NEUTROPHILS ABSOLUTE AUTO 3.61 K/mm3 (1.96-9.15); NEUTROPHILS PERCENT AUTO 60 % (41-73); NRBC ABSOLUTE 0.00 K/mm3 (0.00-0.02); NRBC Auto 0.0 /100 WBC (0.0-0.2); Platelet Count 218 K/mm3 (150-400); RDW Coefficient Variation 13.6 % (11.7-14.2); RDW Standard Deviation 46.5 fL (35.1-46.3)
[2024-09-14 18:08] LABS: Alanine Aminotransfer (ALT/SGP 26.0 U/L (12-78); Albumin, Blood 3.4 g/dL (3.4-5.0); Albumin/Globulin Ratio 1.1 (0.8-1.8); Anion Gap 8.0 mmol/L (3-11); Aspartate Aminotrans (AST/SGOT 16.0 U/L (12-37); Bilirubin, Total 0.4 mg/dL (0.1-1.0); Blood Urea Nitrogen 8.0 mg/dL (8-24); CO2, Blood 27.0 mmol/L (21-32); Calcium, Blood 8.6 mg/dL (8.5-10.1); Chloride, Blood 105.0 mmol/L (98-108); Creatinine, Blood 0.66 mg/dL (0.40-1.00); Globulin, Blood 3.2 g/dL (2.2-4.0); Glucose, Blood 100.0 mg/dL (70-99); Potassium, Blood 3.5 mmol/L (3.5-5.5); Sodium, Blood 136.0 mmol/L (136-145); Total Protein, Blood 6.6 g/dL (6.4-8.2)
[2024-09-14 19:15] VITALS: BP 108/68
== END 2024-09-14 19:30 | disposition home or self-care (01) ==
LOC: ER 17:08
PROVIDERS: Emergency Medicine
DX: I47.10 Supraventricular tachycardia, unspecified (principal); I25.10 Atherosclerotic heart disease of native coronary artery without angina pectoris; F17.210 Nicotine dependence, cigarettes, uncomplicated; Z88.8 Allergy status to other drugs, medicaments and biological substances; Z79.02 Long term (current) use of antithrombotics/antiplatelets; Z79.899 Other long term (current) drug therapy
CPT/HCPCS: 71046; 80053; 83690; 84484; 85025; 93005; 93010; 99285-25

== ENCOUNTER 2024-09-26 16:44 | Inpatient (IN) | payer OTHER ==
[~2024-09-26] VITALS: Ht 160 cm; Wt 56.0 kg
[2024-09-26] MEDS ORDERED: FentaNYL Citrate 50 MCG/ML 2 ML Injection IV ONE (18:15)
[2024-09-26] MEDS ORDERED: Ondansetron HCl 2 MG / ML 2ML Vial IV ONE (18:15)
[2024-09-26 18:37] LABS: Source, Urine Straight Cath
[2024-09-26 18:41] LABS: Bilirubin, Urine Neg (Neg); Glucose Qualitative, Urine Neg (Neg); Ketones, Urine 1+ (Neg); Leukocyte Esterase, Urine 1+ (Neg); Protein, Urine 2+ (Neg); Specific Gravity, Urine 1.015 (1.003-1.022); Urobilinogen, Urine NORM (Normal)
[2024-09-26 19:08] LABS: Alanine Aminotransfer (ALT/SGP 25.0 U/L (12-78); Albumin, Blood 4.2 g/dL (3.4-5.0); Albumin/Globulin Ratio 1.1 (0.8-1.8); Anion Gap 11.0 mmol/L (3-11); Aspartate Aminotrans (AST/SGOT 21.0 U/L (12-37); Bilirubin, Total 0.4 mg/dL (0.1-1.0); Blood Urea Nitrogen 9.0 mg/dL (8-24); CO2, Blood 23.0 mmol/L (21-32); Calcium, Blood 9.7 mg/dL (8.5-10.1); Chloride, Blood 106.0 mmol/L (98-108); Creatinine, Blood 0.59 mg/dL (0.40-1.00); Globulin, Blood 3.7 g/dL (2.2-4.0); Glucose, Blood 129.0 mg/dL (70-99); Potassium, Blood 3.7 mmol/L (3.5-5.5); Sodium, Blood 136.0 mmol/L (136-145); Total Protein, Blood 7.9 g/dL (6.4-8.2)
[2024-09-26 19:12] LABS: Color, Urine Pale Yellow (P-Yellow)
[2024-09-26 19:14] LABS: BASOPHILS ABSOLUTE AUTO 0.03 K/mm3 (0.00-0.23); BASOPHILS PERCENT AUTO 0 % (0-2); EOSINOPHILS ABSOLUTE AUTO 0.01 K/mm3 (0.00-0.68); EOSINOPHILS PERCENT AUTO 0 % (0-6); Hematocrit 43.1 % (33.0-51.0); Hemoglobin 14.7 g/dL (11.5-16.0); IMMATURE GRAN ABSOLUTE AUTO 0.06 K/mm3 (0.00-0.10); IMMATURE GRAN PERCENT AUTO 0 % (0-1); LYMPHOCYTES ABSOLUTE AUTO 1.02 K/mm3 (0.84-5.20); LYMPHOCYTES PERCENT AUTO 7 % (21-46); MONOCYTES ABSOLUTE AUTO 0.71 K/mm3 (0.16-1.47); MONOCYTES PERCENT AUTO 5 % (4-13); Mean Corpuscular HGB Conc 34.1 g/dL (31.5-36.5); Mean Corpuscular Volume 91 fL (80-100); NEUTROPHILS ABSOLUTE AUTO 12.31 K/mm3 (1.96-9.15); NEUTROPHILS PERCENT AUTO 87 % (41-73); NRBC ABSOLUTE 0.00 K/mm3 (0.00-0.02); NRBC Auto 0.0 /100 WBC (0.0-0.2); Platelet Count 261 K/mm3 (150-400); RDW Coefficient Variation 13.1 % (11.7-14.2); RDW Standard Deviation 44.1 fL (35.1-46.3)
[2024-09-26 19:14] LABS: Red Blood Cells, Urine 0-2 /hpf (0-2)
[2024-09-26] MEDS ORDERED: BACLOFEN10 M4 PO (19:20)
[2024-09-26] MEDS ORDERED: HYDROmorphone HCl/Pf 1MG SYR IV ONE (20:05)
[2024-09-26] MEDS ORDERED: Metoclopramide HCl 5MG / ML 2ML Vial IV ONE (20:05)
[2024-09-26] MEDS ORDERED: CefTRIAXone Sodium 1,000 MG in NS 50 ML IV ONE (20:40)
[2024-09-26] MEDS ORDERED: Ondansetron HCl 2 MG / ML 2ML Vial IV PRN (21:35)
[2024-09-26] MEDS ORDERED: OxyCODONE 5 mg/Acetamin 325 mg TABLET PO PRN (21:40)
[2024-09-26] MEDS ORDERED: Diazepam 5 MG / ML 2ML SYR IV ONE (22:00)
[2024-09-26 23:04] VITALS: BP 175/103
[2024-09-26] MEDS ORDERED: Metoclopramide HCl 5MG / ML 2ML Vial IV PRN (23:50)
[2024-09-27] VITALS (7 sets, daily range): BP systolic 107–171; BP diastolic 66–100
--- NOTE | 2024-09-27 00:53 | NUR ---
PAIN/NAUSEA/BP: PROVIDER NOTIFIED THAT PTS BP WAS STILL ELEVATED AFTER GIVING PRN HYDRALAZINE, PERCOCET AND ZOFRAN. PT IS TOSSING AND TURNING IN THE BED. PROVIDER STATED HE ISNT CONCERNED ABOUT THE BLOOD PRESSURE AT THIS TIME DUE TO THE PAIN/NAUSEA PRESENT. PROVIDER PLACING ORDERS FOR MORE PAIN MEDICATION.
--- NOTE | 2024-09-27 04:51 | NUR ---
NIGHT SUMMARY: PT AOX4, SBA TO BATHROOM, ON TELE. PT HAVING EXTREME ABD PAIN AND NAUSEA ON ADMIT TO FLOOR CAUSING INCREASED BP. PROVIDER NOTIFIED AND MEDICATIONS ADDED. PT MEDICATED PER EMAR. PT ABLE TO FIND RELIEF AFTER PRNS HAD TIME TO TAKE EFFECT. ON FLUIDS AND VOIDING APPROPRIATELY, BP CAME DOWN ON MORNING VITAL CHECK. CALL LIGHT WITHIN REACH AND BED IN LOW POSITION.
[2024-09-27 06:02] LABS: BASOPHILS ABSOLUTE AUTO 0.02 K/mm3 (0.00-0.23); BASOPHILS PERCENT AUTO 0 % (0-2); EOSINOPHILS ABSOLUTE AUTO 0.00 K/mm3 (0.00-0.68); EOSINOPHILS PERCENT AUTO 0 % (0-6); Hematocrit 39.8 % (33.0-51.0); Hemoglobin 13.8 g/dL (11.5-16.0); IMMATURE GRAN ABSOLUTE AUTO 0.04 K/mm3 (0.00-0.10); IMMATURE GRAN PERCENT AUTO 0 % (0-1); LYMPHOCYTES ABSOLUTE AUTO 1.11 K/mm3 (0.84-5.20); LYMPHOCYTES PERCENT AUTO 7 % (21-46); MONOCYTES ABSOLUTE AUTO 0.90 K/mm3 (0.16-1.47); MONOCYTES PERCENT AUTO 6 % (4-13); Mean Corpuscular HGB Conc 34.7 g/dL (31.5-36.5); Mean Corpuscular Volume 90 fL (80-100); NEUTROPHILS ABSOLUTE AUTO 12.90 K/mm3 (1.96-9.15); NEUTROPHILS PERCENT AUTO 86 % (41-73); NRBC ABSOLUTE 0.00 K/mm3 (0.00-0.02); NRBC Auto 0.0 /100 WBC (0.0-0.2); Platelet Count 263 K/mm3 (150-400); RDW Coefficient Variation 13.2 % (11.7-14.2); RDW Standard Deviation 43.6 fL (35.1-46.3)
[2024-09-27 06:17] LABS: Anion Gap 13.0 mmol/L (3-11); Blood Urea Nitrogen 9.0 mg/dL (8-24); CO2, Blood 22.0 mmol/L (21-32); Calcium, Blood 8.9 mg/dL (8.5-10.1); Chloride, Blood 105.0 mmol/L (98-108); Creatinine, Blood 0.68 mg/dL (0.40-1.00); Glucose, Blood 130.0 mg/dL (70-99); Potassium, Blood 3.7 mmol/L (3.5-5.5); Sodium, Blood 136.0 mmol/L (136-145)
[2024-09-27] MEDS ORDERED: Enoxaparin 40 MG/0.4 ML SYR SC SCH (09:00)
[2024-09-27] MEDS ORDERED: Lactobacil 2-S.Thermo-Bifido 1 1 Cap PO SCH ×2 (09:00)
[2024-09-27] MEDS ORDERED: LIDOCAINE1 EACH TOP (11:54)
[2024-09-27 14:32] LABS: U Amphetamine Screen Not Detected; U Barbituate Screen Not Detected; U Benzodiazapine Screen DETECTED; U Buprenorphine Screen Not Detected; U Cannabinoids Screen DETECTED; U Cocaine Screen Not Detected; U Methadone Screen Not Detected; U Methamphetamine Screen Not Detected; U Opiates Screen Not Detected; U Oxycodone Screen DETECTED; U Phencyclidine Screen Not Detected
--- NOTE | 2024-09-27 17:51 | NUR ---
PATIENT A/OX4, UP WITH SBA TO RESTROOM. PATIENT STARTED THE DAY VERY PAINFUL AND ANXIOUS. XANAX AND OXYCODONE GIVEN TO TREAT WITH GOOD RELIEF. PATIENT DENIES ANY PAIN THIS EVENING AND NAUSEA HAS ALSO IMPROVED. PATIENT CONTINUES TO HAVE A POOR APPETITE, BUT IS DRINKING FLUIDS AND WAS ABLE TO EAT A BANNANA AND SOME BITES OF DINNER. PATIENT WAS HYPERTENSIVE THIS AM, PRN HYDRALAZINE GIVEN AND HOME MEDICATION REORDERED. VSS, ON RA. COOPERATIVE WITH CARE AND ABLE TO MAKE NEEDS KNOWN.
[2024-09-27] MEDS ORDERED: CefTRIAXone Sodium 1,000 MG in NS 100 ML IV SCH (21:00)
[2024-09-28 00:10] VITALS: BP 103/59
[2024-09-28 04:08] VITALS: BP 114/58
--- NOTE | 2024-09-28 05:45 | NUR ---
SHIFT SUMMARY PT A/Ox4, VSS ON RA. PT REPORTS ANXIETY, MANAGED WITH ALPRAZOLAM. TELE IN PLACE, NSR. NO ACUTE CHANGES OVERNIGHT. UP TO RESTROOM WITH SBA. NO BM OVERNIGHT. RECEIVED DIRECTION FROM INFECTION PREVENTION; DC STOOL SAMPLE ORDER IF NO SAMPLE BY 1000 ON 09/28/24. PT DENIES PAIN, SOB, OTHER COMPLAINTS.
[2024-09-28 07:23] VITALS: BP 131/78
[2024-09-28 08:31] LABS: BASOPHILS ABSOLUTE AUTO 0.04 K/mm3 (0.00-0.23); BASOPHILS PERCENT AUTO 0 % (0-2); EOSINOPHILS ABSOLUTE AUTO 0.03 K/mm3 (0.00-0.68); EOSINOPHILS PERCENT AUTO 0 % (0-6); Hematocrit 37.9 % (33.0-51.0); Hemoglobin 12.6 g/dL (11.5-16.0); IMMATURE GRAN ABSOLUTE AUTO 0.03 K/mm3 (0.00-0.10); IMMATURE GRAN PERCENT AUTO 0 % (0-1); LYMPHOCYTES ABSOLUTE AUTO 2.22 K/mm3 (0.84-5.20); LYMPHOCYTES PERCENT AUTO 21 % (21-46); MONOCYTES ABSOLUTE AUTO 0.79 K/mm3 (0.16-1.47); MONOCYTES PERCENT AUTO 8 % (4-13); Mean Corpuscular HGB Conc 33.2 g/dL (31.5-36.5); Mean Corpuscular Volume 93 fL (80-100); NEUTROPHILS ABSOLUTE AUTO 7.33 K/mm3 (1.96-9.15); NEUTROPHILS PERCENT AUTO 70 % (41-73); NRBC ABSOLUTE 0.00 K/mm3 (0.00-0.02); NRBC Auto 0.0 /100 WBC (0.0-0.2); Platelet Count 214 K/mm3 (150-400); RDW Coefficient Variation 13.4 % (11.7-14.2); RDW Standard Deviation 45.3 fL (35.1-46.3)
[2024-09-28 08:53] LABS: Anion Gap 7.0 mmol/L (3-11); Blood Urea Nitrogen 7.0 mg/dL (8-24); CO2, Blood 29.0 mmol/L (21-32); Calcium, Blood 8.7 mg/dL (8.5-10.1); Chloride, Blood 106.0 mmol/L (98-108); Creatinine, Blood 0.69 mg/dL (0.40-1.00); Glucose, Blood 91.0 mg/dL (70-99); Potassium, Blood 3.8 mmol/L (3.5-5.5); Sodium, Blood 138.0 mmol/L (136-145)
[2024-09-28 11:50] VITALS: BP 134/87
[2024-09-28 16:03] VITALS: BP 131/76
[2024-09-28] MEDS ORDERED: CefTRIAXone Sodium 1,000 MG in NS 100 ML IV ONE (17:05)
[2024-09-28] MEDS ORDERED: ALPR.5 PO (17:35)
[2024-09-28] MEDS ORDERED: VISBIOME 112.51 EACH PO (17:36)
[2024-09-28] MEDS ORDERED: CEPH500 PO (17:36)
[2024-09-28] MEDS ORDERED: OXYC10TA19 PO (17:36)
--- NOTE | 2024-09-28 18:20 | NUR ---
DISCHARGE PT DISCHARGE ORDERS RECEIVED. PT AGREEABLE TO GO HOME. HARD SCRIPT FOR XANAX AND OCYCODONE GIVEN TO PT. PT DISCHARGE INSTRUCTION REVIEWED. NO QUESTIONS. PT ACCOMPNIED OUT VIA W/C. CARE ONGOING.
== END 2024-09-28 18:05 | disposition home or self-care (01) | DRG 872 ==
LOC: ER 16:44 → MEDS 21:31
PROVIDERS: Emergency Medicine; Internal Medicine; Nurse Practitioner Acute Care; ADMIT Student in an Organized Health Care Education/Training Program
DX: A41.9 Sepsis, unspecified organism (principal); E87.20 Acidosis, unspecified; N39.0 Urinary tract infection, site not specified; R65.20 Severe sepsis without septic shock; F41.9 Anxiety disorder, unspecified; K52.9 Noninfective gastroenteritis and colitis, unspecified; K29.70 Gastritis, unspecified, without bleeding; F32.A Depression, unspecified; M79.7 Fibromyalgia; K58.9 Irritable bowel syndrome, unspecified; F17.290 Nicotine dependence, other tobacco product, uncomplicated; I25.10 Atherosclerotic heart disease of native coronary artery without angina pectoris; F12.90 Cannabis use, unspecified, uncomplicated; Z85.3 Personal history of malignant neoplasm of breast; Z85.41 Personal history of malignant neoplasm of cervix uteri; Z88.8 Allergy status to other drugs, medicaments and biological substances; Z71.51 Drug abuse counseling and surveillance of drug abuser
CPT/HCPCS: 36415; 74177; 80048; 80053; 81001; 83605; 83690; 84484; 85025; 87040; 87077; 87086; 87186; 93005; 93010; 96361; 96365-59; 96375; 99285-25; A9270; J0696; J1171; J1650; J2405; J2765; J3010; J3360; J7120; Q9967

== ENCOUNTER → 2024-10-03 | Outpatient (CLI) | payer OTHER ==
[~2024-10-03] MED LIST changes: +BACLOFEN10 M4 PO; +LIDOCAINE1 EACH TOP; +OXYC10TA19 PO; +VISBIOME 112.51 EACH PO
[2024-10-03 09:07] LABS: Source, Urine Clean Catch
[2024-10-03 11:03] LABS: Bilirubin, Urine Neg (Neg); Glucose Qualitative, Urine Neg (Neg); Ketones, Urine Neg (Neg); Leukocyte Esterase, Urine Neg (Neg); Protein, Urine Neg (Neg); Specific Gravity, Urine 1.010 (1.003-1.022); Urobilinogen, Urine NORM (Normal)
[2024-10-03 11:23] LABS: Color, Urine Yellow (P-Yellow)
== END | disposition home or self-care (01) ==
LOC: LAB SHORT 09:05 → LAB 09:05 → EDSTATUS 10-03 09:00 → LAB FUT 10-03 09:00
PROVIDERS: Family Medicine
DX: R30.0 Dysuria (principal)
CPT/HCPCS: 81003

== ENCOUNTER → 2024-10-17 | Outpatient (CLI) | payer OTHER ==
[2024-10-17 09:14] LABS: BASOPHILS ABSOLUTE AUTO 0.03 K/mm3 (0.00-0.23); BASOPHILS PERCENT AUTO 0 % (0-2); EOSINOPHILS ABSOLUTE AUTO 0.05 K/mm3 (0.00-0.68); EOSINOPHILS PERCENT AUTO 0 % (0-6); Hematocrit 40.8 % (33.0-51.0); Hemoglobin 13.4 g/dL (11.5-16.0); IMMATURE GRAN ABSOLUTE AUTO 0.05 K/mm3 (0.00-0.10); IMMATURE GRAN PERCENT AUTO 0 % (0-1); LYMPHOCYTES ABSOLUTE AUTO 1.37 K/mm3 (0.84-5.20); LYMPHOCYTES PERCENT AUTO 11 % (21-46); MONOCYTES ABSOLUTE AUTO 0.79 K/mm3 (0.16-1.47); MONOCYTES PERCENT AUTO 6 % (4-13); Mean Corpuscular HGB Conc 32.8 g/dL (31.5-36.5); Mean Corpuscular Volume 94 fL (80-100); NEUTROPHILS ABSOLUTE AUTO 10.06 K/mm3 (1.96-9.15); NEUTROPHILS PERCENT AUTO 82 % (41-73); NRBC ABSOLUTE 0.00 K/mm3 (0.00-0.02); NRBC Auto 0.0 /100 WBC (0.0-0.2); Platelet Count 231 K/mm3 (150-400); RDW Coefficient Variation 13.5 % (11.7-14.2); RDW Standard Deviation 46.6 fL (35.1-46.3)
[2024-10-17 09:24] LABS: Alanine Aminotransfer (ALT/SGP 34.0 U/L (12-78); Albumin, Blood 3.9 g/dL (3.4-5.0); Albumin/Globulin Ratio 1.1 (0.8-1.8); Anion Gap 14.0 mmol/L (3-11); Aspartate Aminotrans (AST/SGOT 24.0 U/L (12-37); Bilirubin, Total 0.3 mg/dL (0.1-1.0); Blood Urea Nitrogen 8.0 mg/dL (8-24); CO2, Blood 27.0 mmol/L (21-32); Calcium, Blood 9.2 mg/dL (8.5-10.1); Chloride, Blood 101.0 mmol/L (98-108); Creatinine, Blood 0.89 mg/dL (0.40-1.00); Globulin, Blood 3.6 g/dL (2.2-4.0); Glucose, Blood 105.0 mg/dL (70-99); Potassium, Blood 4.0 mmol/L (3.5-5.5); Sodium, Blood 138.0 mmol/L (136-145); Total Protein, Blood 7.5 g/dL (6.4-8.2)
== END | disposition home or self-care (01) ==
LOC: LAB 08:44 → LAB SHORT 08:44
PROVIDERS: Family Medicine
DX: R30.0 Dysuria (principal); R19.7 Diarrhea, unspecified; R42 Dizziness and giddiness
CPT/HCPCS: 80053; 85025; 87040; 87086

== ENCOUNTER → 2024-10-17 | Outpatient (CLI) | payer OTHER ==
[2024-10-18 15:39] LABS: C DIFFICILE DNA NEGATIVE (Negative)
== END ==
LOC: LAB 15:00 → LAB SHORT 15:00
PROVIDERS: Family Medicine
DX: R19.7 Diarrhea, unspecified (principal)
CPT/HCPCS: 87493

== ENCOUNTER → 2024-10-18 | Outpatient (CLI) | payer OTHER | LOC: LAB SHORT 15:31 → LAB 15:31 | DX: N39.0 Urinary tract infection, site not specified (principal) | CPT/HCPCS: 87086 ==

== ENCOUNTER 2024-10-29 09:58 | Emergency (ER) | payer OTHER ==
[~2024-10-29] VITALS: Ht 160 cm; Wt 59.0 kg
[2024-10-29 11:11] LABS: BASOPHILS ABSOLUTE AUTO 0.02 K/mm3 (0.00-0.23); BASOPHILS PERCENT AUTO 0 % (0-2); EOSINOPHILS ABSOLUTE AUTO 0.01 K/mm3 (0.00-0.68); EOSINOPHILS PERCENT AUTO 0 % (0-6); Hematocrit 40.6 % (33.0-51.0); Hemoglobin 13.7 g/dL (11.5-16.0); IMMATURE GRAN ABSOLUTE AUTO 0.02 K/mm3 (0.00-0.10); IMMATURE GRAN PERCENT AUTO 0 % (0-1); LYMPHOCYTES ABSOLUTE AUTO 1.13 K/mm3 (0.84-5.20); LYMPHOCYTES PERCENT AUTO 16 % (21-46); MONOCYTES ABSOLUTE AUTO 0.52 K/mm3 (0.16-1.47); MONOCYTES PERCENT AUTO 7 % (4-13); Mean Corpuscular HGB Conc 33.7 g/dL (31.5-36.5); Mean Corpuscular Volume 91 fL (80-100); NEUTROPHILS ABSOLUTE AUTO 5.61 K/mm3 (1.96-9.15); NEUTROPHILS PERCENT AUTO 77 % (41-73); NRBC ABSOLUTE 0.00 K/mm3 (0.00-0.02); NRBC Auto 0.0 /100 WBC (0.0-0.2); Platelet Count 202 K/mm3 (150-400); RDW Coefficient Variation 13.0 % (11.7-14.2); RDW Standard Deviation 43.1 fL (35.1-46.3)
[2024-10-29 11:23] LABS: Anion Gap 12.0 mmol/L (3-11); Blood Urea Nitrogen 14.0 mg/dL (8-24); CO2, Blood 22.0 mmol/L (21-32); Calcium, Blood 9.3 mg/dL (8.5-10.1); Chloride, Blood 109.0 mmol/L (98-108); Creatinine, Blood 0.66 mg/dL (0.40-1.00); Glucose, Blood 97.0 mg/dL (70-99); Potassium, Blood 3.6 mmol/L (3.5-5.5); Sodium, Blood 139.0 mmol/L (136-145)
[2024-10-29] MEDS ORDERED: NS 1,000 ML IV SCH (11:30)
[2024-10-29 11:37] VITALS: BP 149/85
[2024-10-29 12:40] LABS: Source, Urine Clean Catch
[2024-10-29 12:49] LABS: Bilirubin, Urine Neg (Neg); Color, Urine Yellow (P-Yellow); Glucose Qualitative, Urine Neg (Neg); Ketones, Urine 4+ (Neg); Leukocyte Esterase, Urine Neg (Neg); Protein, Urine 2+ (Neg); Specific Gravity, Urine 1.020 (1.003-1.022); Urobilinogen, Urine 1+ (Normal)
[2024-10-29 13:00] LABS: Red Blood Cells, Urine 0-2 /hpf (0-2); White Blood Cells, Urine 0-2 /hpf (0-5)
[2024-10-29] MEDS ORDERED: Pyridium100 MG PO (13:26)
== END 2024-10-29 14:09 | disposition home or self-care (01) ==
LOC: ER 09:58
PROVIDERS: Emergency Medicine
DX: R30.0 Dysuria (principal); Z88.8 Allergy status to other drugs, medicaments and biological substances; F17.210 Nicotine dependence, cigarettes, uncomplicated
CPT/HCPCS: 51798; 80048; 81001; 85025; 96360; 99283-25; J7030

== ENCOUNTER → 2024-11-13 | Outpatient (CLI) | payer OTHER ==
[~2024-11-13] MED LIST changes: +Pyridium100 MG PO
== END ==
LOC: LAB 14:12 → LAB SHORT 14:12
DX: R30.0 Dysuria (principal)
CPT/HCPCS: 87086

== ENCOUNTER → 2024-12-11 | Outpatient (CLI) | payer MEDICARE, OTHER ==
[~2024-12-11] MED LIST changes: +CELE200 PO
[2024-12-11 12:29] LABS: BASOPHILS ABSOLUTE AUTO 0.02 K/mm3 (0.00-0.23); BASOPHILS PERCENT AUTO 0 % (0-2); EOSINOPHILS ABSOLUTE AUTO 0.01 K/mm3 (0.00-0.68); EOSINOPHILS PERCENT AUTO 0 % (0-6); Hematocrit 45.2 % (33.0-51.0); Hemoglobin 15.4 g/dL (11.5-16.0); IMMATURE GRAN ABSOLUTE AUTO 0.01 K/mm3 (0.00-0.10); IMMATURE GRAN PERCENT AUTO 0 % (0-1); LYMPHOCYTES ABSOLUTE AUTO 1.57 K/mm3 (0.84-5.20); LYMPHOCYTES PERCENT AUTO 22 % (21-46); MONOCYTES ABSOLUTE AUTO 0.63 K/mm3 (0.16-1.47); MONOCYTES PERCENT AUTO 9 % (4-13); Mean Corpuscular HGB Conc 34.1 g/dL (31.5-36.5); Mean Corpuscular Volume 90 fL (80-100); NEUTROPHILS ABSOLUTE AUTO 4.96 K/mm3 (1.96-9.15); NEUTROPHILS PERCENT AUTO 69 % (41-73); NRBC ABSOLUTE 0.00 K/mm3 (0.00-0.02); NRBC Auto 0.0 /100 WBC (0.0-0.2); Platelet Count 249 K/mm3 (150-400); RDW Coefficient Variation 13.3 % (11.7-14.2); RDW Standard Deviation 43.8 fL (35.1-46.3)
[2024-12-11 12:40] LABS: Alanine Aminotransfer (ALT/SGP 33.0 U/L (12-78); Albumin, Blood 4.3 g/dL (3.4-5.0); Albumin/Globulin Ratio 1.1 (0.8-1.8); Anion Gap 19.0 mmol/L (3-11); Aspartate Aminotrans (AST/SGOT 20.0 U/L (12-37); Bilirubin, Total 0.5 mg/dL (0.1-1.0); Blood Urea Nitrogen 17.0 mg/dL (8-24); CO2, Blood 26.0 mmol/L (21-32); Calcium, Blood 10.1 mg/dL (8.5-10.1); Chloride, Blood 102.0 mmol/L (98-108); Creatinine, Blood 0.95 mg/dL (0.40-1.00); Globulin, Blood 4.0 g/dL (2.2-4.0); Glucose, Blood 103.0 mg/dL (70-99); Potassium, Blood 3.7 mmol/L (3.5-5.5); Sodium, Blood 143.0 mmol/L (136-145); Total Protein, Blood 8.3 g/dL (6.4-8.2)
== END ==
LOC: LAB SHORT 12:25 → LAB 12:25
DX: R11.2 Nausea with vomiting, unspecified (principal)
CPT/HCPCS: 80053; 83690; 85025; 87086

== ENCOUNTER 2025-01-06 08:01 | Emergency (ER) | payer MEDICARE, OTHER ==
[~2025-01-06] VITALS: Ht 160 cm; Wt 56.7 kg
[~2025-01-06 08:01] MED LIST changes: -CELE200 PO
[2025-01-06] MEDS ORDERED: Prochlorperazine Edisylate 10 mg Vial IV ONE (08:15)
[2025-01-06 08:16] LABS: BASOPHILS ABSOLUTE AUTO 0.04 K/mm3 (0.00-0.23); BASOPHILS PERCENT AUTO 0 % (0-2); EOSINOPHILS ABSOLUTE AUTO 0.00 K/mm3 (0.00-0.68); EOSINOPHILS PERCENT AUTO 0 % (0-6); Hematocrit 40.3 % (33.0-51.0); Hemoglobin 13.4 g/dL (11.5-16.0); IMMATURE GRAN ABSOLUTE AUTO 0.05 K/mm3 (0.00-0.10); IMMATURE GRAN PERCENT AUTO 0 % (0-1); LYMPHOCYTES ABSOLUTE AUTO 0.64 K/mm3 (0.84-5.20); LYMPHOCYTES PERCENT AUTO 4 % (21-46); MONOCYTES ABSOLUTE AUTO 0.74 K/mm3 (0.16-1.47); MONOCYTES PERCENT AUTO 5 % (4-13); Mean Corpuscular HGB Conc 33.3 g/dL (31.5-36.5); Mean Corpuscular Volume 89 fL (80-100); NEUTROPHILS ABSOLUTE AUTO 13.51 K/mm3 (1.96-9.15); NEUTROPHILS PERCENT AUTO 90 % (41-73); NRBC ABSOLUTE 0.00 K/mm3 (0.00-0.02); NRBC Auto 0.0 /100 WBC (0.0-0.2); Platelet Count 228 K/mm3 (150-400); RDW Coefficient Variation 13.0 % (11.7-14.2); RDW Standard Deviation 42.6 fL (35.1-46.3)
[2025-01-06] MEDS ORDERED: CELE200 PO (08:16)
[2025-01-06 08:34] LABS: Source, Urine Clean Catch
[2025-01-06 08:41] LABS: Bilirubin, Urine Neg (Neg); Color, Urine Yellow (P-Yellow); Glucose Qualitative, Urine Neg (Neg); Ketones, Urine 4+ (Neg); Leukocyte Esterase, Urine 1+ (Neg); Protein, Urine 3+ (Neg); Specific Gravity, Urine 1.020 (1.003-1.022); Urobilinogen, Urine NORM (Normal)
[2025-01-06 08:49] LABS: Alanine Aminotransfer (ALT/SGP 22.0 U/L (12-78); Albumin, Blood 4.2 g/dL (3.4-5.0); Albumin/Globulin Ratio 1.3 (0.8-1.8); Anion Gap 10.0 mmol/L (3-11); Aspartate Aminotrans (AST/SGOT 15.0 U/L (12-37); Bilirubin, Total 0.4 mg/dL (0.1-1.0); Blood Urea Nitrogen 13.0 mg/dL (8-24); CO2, Blood 28.0 mmol/L (21-32); Calcium, Blood 9.6 mg/dL (8.5-10.1); Chloride, Blood 104.0 mmol/L (98-108); Creatinine, Blood 0.61 mg/dL (0.40-1.00); Globulin, Blood 3.3 g/dL (2.2-4.0); Glucose, Blood 189.0 mg/dL (70-99); Magnesium, Blood 1.6 mg/dL (1.6-2.4); Potassium, Blood 3.5 mmol/L (3.5-5.5); Sodium, Blood 138.0 mmol/L (136-145); Total Protein, Blood 7.5 g/dL (6.4-8.2)
[2025-01-06 09:03] LABS: Red Blood Cells, Urine Not Seen /hpf (0-2); White Blood Cells, Urine 0-2 /hpf (0-5)
[2025-01-06 09:15] VITALS: BP 174/97
[2025-01-06] MEDS ORDERED: NS 1,000 ML IV SCH (09:25)
[2025-01-06] MEDS ORDERED: COMPAZINE10 MG PO (10:51)
== END 2025-01-06 11:00 | disposition home or self-care (01) ==
LOC: ER 08:01
PROVIDERS: Emergency Medicine
DX: A08.4 Viral intestinal infection, unspecified (principal); E87.20 Acidosis, unspecified; E86.1 Hypovolemia; F17.210 Nicotine dependence, cigarettes, uncomplicated; Z79.02 Long term (current) use of antithrombotics/antiplatelets; Z79.899 Other long term (current) drug therapy; Z88.8 Allergy status to other drugs, medicaments and biological substances
CPT/HCPCS: 80053; 81001; 83605; 83735; 85025; 87086; 96374; 99284-25; J0780; J7030

== ENCOUNTER → 2025-01-16 | Outpatient (CLI) | payer MEDICARE, OTHER ==
[~2025-01-16] MED LIST changes: +CELE200 PO
== END | disposition home or self-care (01) ==
LOC: LAB 09:47 → LAB SHORT 09:47
DX: N39.0 Urinary tract infection, site not specified (principal)
CPT/HCPCS: 87086

== ENCOUNTER → 2025-02-02 | Outpatient (CLI) | payer MEDICARE, OTHER ==
[2025-02-02 11:25] LABS: Source, Urine Clean Catch
[2025-02-02 13:06] LABS: Bilirubin, Urine Neg (Neg); Glucose Qualitative, Urine Neg (Neg); Ketones, Urine Neg (Neg); Leukocyte Esterase, Urine Neg (Neg); Protein, Urine Neg (Neg); Specific Gravity, Urine 1.005 (1.003-1.022); Urobilinogen, Urine NORM (Normal)
[2025-02-02 13:35] LABS: Color, Urine Pale Yellow (P-Yellow)
== END ==
LOC: LAB 11:24 → LAB SHORT 11:24
PROVIDERS: Family Medicine
DX: R30.0 Dysuria (principal)
CPT/HCPCS: 81003